=== PATIENT | female | born 1940 | race Caucasian/White ===

== ENCOUNTER 2017-08-18 17:39 | Emergency (ER) | payer MEDICARE ==
[2017-08-18 17:53] VITALS: BP 115/74; PULSE 105; RESP 17; TEMP 97.8
--- NOTE | 2017-08-18 18:21 | ED ---
Back Pain HPI - General Chief Complaint: Back Pain/Injury Stated Complaint: Back pain Time Seen by Provider: 08/18/17 18:05 Source: patient, RN notes reviewed Limitations: no limitations - History of Present Illness Initial Comments: This is a 77-year-old female who presents to the emergency department with chief complaint of back pain. Patient states that she has been experiencing back pain for the past one month. She denies any falls or injuries. Patient states that she feels most of the pain in her tailbone as well as off to the sides of her low back. Patient states that she has intermittent numbness down bilateral posterior thighs. She states that the numbness lasts for about 5 minutes at a time. She denies any radiation of pain down the legs. She denies saddle paresthesias or loss of bladder or bowel function. Patient states that she was seen by her primary care physician last week and had lumbar x-rays. She was told that they had lost her x-rays so she has not been able to see the results. Patient has no other complaints. Denies fever, chills, chest pain, shortness of breath, abdominal pain, nausea or vomiting, constipation or diarrhea, dysuria or hematuria, headache or vision changes. - Related Data Home Medications Medication Instructions Recorded Confirmed Calcium/Magnesium/Zinc 0.5 tab PO DAILY 01/01/14 12/21/14 [Trgideu-Xeceoiqtc-Fnbf Tablet] Cholecalciferol [Vitamin D3] 400 unit PO DAILY 01/01/14 12/21/14 Aspirin 81 mg PO HS 12/13/14 12/21/14 Previous Rx's Medication Instructions Recorded Clopidogrel [Plavix] 75 mg PO DAILY #30 tab 03/22/14 Budesonide-Formot 160-4.5 Mcg 2 puff INHALATION RT-BID #1 puff 12/20/14 [Symbicort 160-4.5 Mcg Inhaler] Nicotine 21Mg/24Hr Patch [Habitrol] 1 patch TRANSDERM DAILY #30 patch 12/20/14 Omeprazole [PriLOSEC] 20 mg PO RAFALKFSBenito #30 capsule. 12/20/14 Atenolol [Tenormin] 25 mg PO BID #60 tab 12/24/14 Furosemide [Lasix] 60 mg PO QAM #90 tab 12/24/14 Lisinopril [Zestril] 2.5 mg PO HS #30 tab 12/24/14 Spironolactone [Aldactone] 25 mg PO DAILY #30 tab 12/24/14 Tiotropium 18 Mcg/Puff [Spiriva] 1 puff INHALATION RT-DAILY inhaler 12/24/14 methylPREDNISolone Dose Pack 16 mg PO DAILY tab 12/24/14 [Medrol Dose Pack] HYDROcodone/APAP 5-325MG [Orting 5] 1 each PO Q6HR PRN #6 tab 08/18/17 predniSONE 20 mg PO DAILY #3 tab 08/18/17 Allergies Allergy/AdvReac Type Severity Reaction Status Date / Time shellfish derived Allergy Severe Anaphylaxis Verified 08/18/17 17:53 nickel [Nickel] Allergy Rash/Hives Verified 08/18/17 17:53 Review of Systems ROS Statement: Those systems with pertinent positive or pertinent negative responses have been documented in the HPI. ROS Other: All systems not noted in ROS Statement are negative. Past Medical History Past Medical History: Coronary Artery Disease (CAD), Heart Failure, Hypertension , Myocardial Infarction ([place]), Rheumatoid Arthritis ([place]) Additional Past Medical History / Comment(s): circulation problems in legs, OSTEOARTHRITIS, STATES WAS TOLD HAD "LEAKY VALVES" AND "SOME BLOCKAGE IN MY NECK VEINS", had polio as a child, some weakness in legs History of Any Multi-Drug Resistant Organisms: None Reported Past Surgical History: Hysterectomy, Orthopedic Surgery Additional Past Surgical History / Comment(s): LEFT WRIST, SUMA, aortogram Hysterectomy is on the right Past Anesthesia/Blood Transfusion Reactions: No Reported Reaction Past Psychological History: No Psychological Hx Reported Smoking Status: Current every day smoker Past Alcohol Use History: None Reported Past Drug Use History: None Reported - Past Family History Mother Additional Family Medical History / Comment(s): ETOH abuse General Exam - General Exam Comments Initial Comments: General: Awake and alert, well-developed; in no apparent distress. HEENT: Head atraumatic, normocephalic. Pupils are equal, round and reactive to light. Extraocular movements intact. Oropharynx moist without erythema or exudate. Neck: Supple. Normal ROM. No tenderness. Cardiovascular: Regular rate and rhythm. No murmurs, rubs or gallops. Chest symmetrical. Respiratory: Lungs clear to auscultation bilaterally. No wheezes, rales or rhonchi. Normal respiratory effort with no use of accessory muscles. Musculoskeletal: Normal [place] of spine. Bilateral SI joint tenderness and sacral tenderness. No bony point vertebral tenderness or paraspinal muscle tenderness. Sensation is intact. Pedal pulses are 2+ equal and palpable bilaterally. Skin: [place], warm and dry without rashes or lesions. Neurological: Alert and oriented x3. CN II-XII grossly intact. Speech is fluent and answers are appropriate. No focal neuro deficits. Psychiatric: Normal mood and affect. No overt signs of depression or anxiety noted. Limitations: no limitations Course Vital Signs 08/18/17 17:51 Temperature 97.8 F Pulse Rate 105 H Respiratory 17 Rate Blood Pressure 115/74 O2 Sat by Pulse 96 Oximetry Medical Decision Making - Medical Decision Making This is a 77-year-old female who presents to the emergency department with chief complaint of back pain 1 month. x-ray revealed no acute abnormalities. Patient does appear to have degenerative changes. Patient will be given steroids and pain medication. She is to follow-up with her primary care provider. Patient is in no acute distress. She denies saddle paresthesias, loss of bladder or bowel function and has normal active range of motion. Patient is ambulating normally. Patient will be discharged home. She is in agreement with plan and voices understanding. All questions were answered. - Radiology Data Radiology results: report reviewed Lumbosacral x-ray findings: There is no fracture or malalignment. The soft tissues are unremarkable. There are prominent lumbar spondylosis changes seen at all levels. Impression: No acute process. Disposition Clinical Impression: Arthritis, low back Disposition: HOME SELF-CARE Condition: Good Instructions: Acute Low Back Pain (ED) Additional Instructions: Please follow up with primary care provider within 1-2 days. Return to emergency department if symptoms should worsen or any concerns arise. Prescriptions: HYDROcodone/APAP 5-325MG [Orting 5] 1 each PO Q6HR PRN #6 tab PRN Reason: Pain predniSONE 20 mg PO DAILY #3 tab Referrals: Nonstaff,Physician [Primary Care Provider] - 1-2 days Time of Disposition: 18:57
--- NOTE | 2017-08-18 18:31 | XR ---
PROCEDURE: XR lumbosacral spine - 5V DATE AND TIME: 08/18/2017 6:24 PM REFERRING PHYSICIAN: Michelle Ng CLINICAL INDICATION: PHH, Pain TECHNIQUE: Department protocol. COMPARISON: None FINDINGS: There is no fracture or malalignment. The soft tissues are unremarkable. There are prominen t lumbar spondylosis changes seen at all levels. IMPRESSION: NO ACUTE PROCESS.
[2017-08-18] MEDS ORDERED: predniSONE 50 MG TAB PO STA (18:52)
== END 2017-08-18 19:03 | disposition home or self-care (01) ==
LOC: EC 17:39
DX: M45.8 Ankylosing spondylitis sacral and sacrococcygeal region (principal); I25.10 Atherosclerotic heart disease of native coronary artery without angina pectoris; I25.2 Old myocardial infarction; I50.9 Heart failure, unspecified; Z79.82 Long term (current) use of aspirin; Z79.899 Other long term (current) drug therapy; Z91.013 Allergy to seafood; Z91.09 Other allergy status, other than to drugs and biological substances; Z98.890 Other specified postprocedural states
CPT/HCPCS: 72110; 99283; J7512

== ENCOUNTER → 2018-10-23 | Outpatient (CLI) | payer MEDICARE ==
[2018-10-23 14:26] LABS: Anion Gap 8 mmol/L; Blood Urea Nitrogen 16 mg/dL (7-17); Carbon Dioxide 30 mmol/L (22-30); Chloride 99 mmol/L (98-107); Potassium 4.2 mmol/L (3.5-5.1); Sodium 137 mmol/L (137-145)
[2018-10-23 14:29] LABS: HCT 39.5 % (34.0-46.0); HGB 12.1 gm/dL (11.4-16.0); Hypochromasia Slight; MCHC 30.8 g/dL (31.0-37.0); MCV 87.6 fL (80.0-100.0); Platelet Count 374 k/uL (150-450); RBC 4.51 m/uL (3.80-5.40); RDW 14.5 % (11.5-15.5); WBC 11.7 k/uL (3.8-10.6)
== END | disposition home or self-care (01) ==
LOC: LABPAT 12:25
PROVIDERS: ATTEND Internal Medicine Interventional Cardiology
DX: Z01.812 Encounter for preprocedural laboratory examination (principal); I25.10 Atherosclerotic heart disease of native coronary artery without angina pectoris; I25.5 Ischemic cardiomyopathy; I34.0 Nonrheumatic mitral (valve) insufficiency
CPT/HCPCS: 36415; 80051; 82565; 84520; 85027

== ENCOUNTER 2018-11-02 09:13 | Day surgery (SDC) | payer MEDICARE ==
[~2018-11-02 09:13] MED LIST: ALPRAZolam 0.25 MG TAB PO PRN; ASPIRIN 325 MG TAB PO ONE; SODIUM CHLORIDE 0.9% 1,000 ML in EMPTY BAG 1 BAG IV ONE
[2018-11-02 09:44] VITALS: TEMP 97.5
[2018-11-02] MEDS ORDERED: IV FLUID CONTINUATION 1,000 ML IV ONE (11:28)
[2018-11-02] MEDS: BENZOCAINE SPRAY 1 CAN MUCOUS MEM ONE ×2 (11:35→11:43)
[2018-11-02] MEDS ORDERED: MIDAZOLAM 2 MG/2 ML VIAL IV ONE ×3 (11:43→12:06)
[2018-11-02] MEDS ORDERED: fentaNYL (PF) 50 MCG/ML 2 ML AMP IV ONE ×2 (11:43→11:55)
[2018-11-02] MEDS ORDERED: LIDOCAINE 1% INJ 10MG/ML (20 ML MDV) ONE (11:55)
[2018-11-02] MEDS: MIDAZOLAM 2 MG/2 ML VIAL IV ONE ×2 (11:55→11:58)
[2018-11-02] MEDS ORDERED: FLUMAZENIL 0.1 MG/ML 5 ML VIAL IVP ONE (12:18)
[2018-11-02] MEDS: FLUMAZENIL 0.1 MG/ML 5 ML VIAL IVP ONE ×2 (12:24→12:31)
[2018-11-02] MEDS ORDERED: LIDOCAINE 1% INJ 10MG/ML (20 ML MDV) SQ ONE (12:36)
--- NOTE | 2018-11-02 12:44 | ECHOT ---
TRANSESOPHAGEAL ECHOCARDIOGRAM DATE OF SERVICE: November 02, 2018 PERFORMING PHYSICIAN: Dontrell Jane MD, mica washer gluer. PROCEDURE PERFORMED: Transesophageal echocardiogram. INDICATION: This is a 78-year-old female patient with history of coronary artery disease, peripheral arterial disease, as well as significant history of smoking, who was experiencing lately worsening exertional dyspnea. No chest pain or chest discomfort. She underwent transthoracic echocardiogram and that revealed severe mitral regurgitation with cardiomyopathy and EF between 35% to 40%. Beside that she underwent myocardial perfusion imaging stress test and that revealed septal ischemia. Because of that, a transesophageal echocardiogram was advised. COMPLICATION: None. LEVEL OF SEDATION: Moderate with sedation length of 10 minutes. PROCEDURE DESCRIPTION: After obtaining an informed consent, explaining the procedure, benefits, risks, complications and alternatives, the patient was brought to the transesophageal echocardiogram suite. A pulse oximetry and heart rate monitors were attached to the patient prior to the procedure. The patient's throat was sprayed using lidocaine locally. Following that, the patient was turned into left lateral position. A bite guard was placed and the patient was then sedated with the above doses of Versed and fentanyl in divided doses. Following that, the transesophageal echocardiogram probe was advanced through the bite guard into the mid esophagus where 2-D echocardiogram images as well as color Doppler images of various cardiac structures were obtained. We evaluated the interatrial septum using 2-D echocardiogram, color Doppler, and contrast study. The procedure was completed. There were no complications. FINDINGS: The left ventricle appeared to be dilated. The left ventricular systolic function is impaired with an ejection fraction of 35% to 40%. The right ventricle appeared to be of normal size and function. The left atrium appeared to be severely dilated. Left atrial appendage appeared to be free from any thrombus. The interatrial septum was not well visualized, but there was no clear-cut evidence of right to left or left to right shunt. The aortic valve appears to be trileaflet valve with mild aortic insufficiency. No aortic stenosis seen. The mitral valve seems to be thickened with evidence of severe mitral regurgitation with slightly posteriorly directed jet. The tricuspid valve and pulmonic valve appear to be within normal limits with mild TR and mild PI. CONCLUSION: 1. Severe mitral regurgitation with posteriorly directed jet. The mitral regurgitation severity was confirmed by color-flow Doppler, as well as by contracta. 2. Impaired left ventricular function with ejection fraction between 35% to 40%. 3. Aortic sclerosis without stenosis with mild insufficiency. 4. Mild tricuspid regurgitation. 5. Mild pulmonic insufficiency. 6. Severely dilated left atrium. 7. Normal left atrial appendage. 8. Intact interatrial septum. MMODL / IJN: [id number] /
[2018-11-02] MEDS ORDERED: IOPAMIDOL-370 150ML BTL INJ ONE (12:51)
[2018-11-02] MEDS ORDERED: ONDANSETRON 4 MG/2 ML VIAL ONE (13:17)
[2018-11-02] MEDS ORDERED: ONDANSETRON 4 MG/2 ML VIAL IVP ONE (13:21)
[2018-11-02] MEDS ORDERED: RX INFO: IV CONTRAST WAS GIVEN 1 EACH MISC MISCELLANE PRN (13:27)
--- NOTE | 2018-11-02 13:29 | CC ---
CARDIAC CATHETERIZATION REPORT DATE OF SERVICE: November 02, 2018 PERFORMING PHYSICIAN: Dontrell Jane MD, ditcher. PROCEDURE PERFORMED: 1. Selective right and left coronary angiogram. 2. Left heart catheterization. INDICATION: This is a 78-year-old female patient with history of coronary artery disease, peripheral arterial disease, and significant history of smoking, who was experiencing recently symptoms of exertional dyspnea. She underwent a stress test in the office and that showed anteroseptal ischemia. Subsequently, she underwent an echocardiogram which revealed cardiomyopathy with EF between 35% to 40%and severe mitral regurgitation. Because of that, she was advised to undergo a SUMA and heart catheterization. She underwent a SUMA earlier and that revealed cardiomyopathy with EF between 35% to 40% with evidence of severe mitral regurgitation. APPROACH: Right common femoral artery. COMPLICATION: None. LEVEL OF SEDATION: Moderate with sedation length of 21 minutes. PROCEDURE DESCRIPTION: After obtaining an informed consent, the patient was brought to the cardiac mill laborer. The right common femoral artery was cannulated using micropuncture technique, the micropuncture wire passed easily then I placed a 6-[place] sheath 11 cm in the right common femoral artery. I did after that selective right and left coronary angiogram using JR4 and JL3.5 catheters. I had some difficulty advancing the 0.035 J-wire and I had to use Glidewire to cross the iliac on the right side. I did after that left heart catheterization using 6-[place] pigtail catheter. The procedure was completed without any complication. SELECTIVE CORONARY ANGIOGRAM: 1. The right coronary artery is a large caliber vessel and is a dominant vessel. The right coronary artery is chronically occluded in the proximal portion and fills by collaterals from the left coronary system. 2. The left main is extremely calcified. The mid shaft of the left main has a lesion appeared to be in the range of 70% to 80%. The left main after that bifurcates into left circumflex and left anterior descending artery. 3. The left circumflex is a large caliber vessel. The proximal circumflex appeared to be angiographically normal. It gives rise into small first OM branch. The mid left circumflex appeared to have tubular lesion in the range of 60%. This is just distal to the bifurcation of second OM branch which appeared to be angiographically normal. The left circumflex continues after that as a moderate caliber vessel in the AV groove. 4. The LAD: The proximal LAD appeared to be calcified with mild to moderate disease. The mid LAD appeared to have mild disease only and the LAD distally appeared to be angiographically normal. HEMODYNAMICS: The left ventricular end-diastolic pressure was 12 mmHg without significant gradient across the aortic valve. CONCLUSION: 1. Chronic total occlusion of the right coronary artery which fills by collaterals from the left coronary system. 2. Severe disease involving the left main coronary artery. 3. Extremely calcified right and left coronary system. 4. Severe peripheral arterial disease with occluded right common femoral artery. 5. Patent stent in the distal aorta. POST PROCEDURE MANAGEMENT: Given the above anatomy, I did recommend obtaining a consult for cardiothoracic surgeon for the evaluation of coronary artery bypass grafting along with mitral valve repair. MMODL / IJN: [id number] /
[2018-11-02] MEDS ORDERED: SODIUM CHLORIDE 0.9% 1,000 ML IV SCH (13:30)
--- NOTE | 2018-11-02 14:55 | XR ---
EXAMINATION TYPE: XR chest 1V DATE OF EXAM: 11/02/2018 HISTORY: Shortness of breath. COMPARISON: 12/22/2014 TECHNIQUE: Single view of the chest is submitted. FINDINGS: Demonstrated are scattered senescent parenchymal change. There is left suprahilar masslike density measuring approximately 5.6 x 5.2 cm. Underlying mass is no t excluded. Correlate with CT. The heart is stable. Hilar and mediastinal structures are within normal limits. Degenerative changes are seen of the dorsal spine. IMPRESSION: 1. There is left suprahilar masslike density measuring approximately 5.6 x 5.2 cm. Underlying mass i s not excluded. Correlate with CT.
[2018-11-02 14:56] VITALS: RESP 18
[2018-11-02 15:12] LABS: Basophils % (A) 0 %; Eosinophils % (A) 0 %; HCT 35.1 % (34.0-46.0); HGB 10.8 gm/dL (11.4-16.0); Hypochromasia Slight; Lymphocytes # (A) 0.6 k/uL (1.0-4.8); Lymphocytes % (A) 6 %; MCH 27.5 pg (25.0-35.0); MCHC 30.9 g/dL (31.0-37.0); MCV 89.1 fL (80.0-100.0); Mean Platelet Volume 8.3; Monocytes # (A) 0.3 k/uL (0-1.0); Monocytes % (A) 3 %; Neutrophils # (A) 8.6 k/uL (1.3-7.7); Neutrophils % (A) 90 %; Platelet Count 317 k/uL (150-450); RBC 3.94 m/uL (3.80-5.40); RDW 14.7 % (11.5-15.5); WBC 9.6 k/uL (3.8-10.6)
[2018-11-02 15:15] LABS: Albumin 3.7 g/dL (3.5-5.0); Calcium 8.9 mg/dL (8.4-10.2); Magnesium 2.1 mg/dL (1.6-2.3); Potassium 4.1 mmol/L (3.5-5.1); Total Bilirubin 0.4 mg/dL (0.2-1.3); Total Protein 6.5 g/dL (6.3-8.2)
[2018-11-02 15:25] LABS: Prothrombin Time 10.4 sec (9.0-12.0)
[2018-11-02 15:26] LABS: Partial Thromboplastin Time 23.6 sec (22.0-30.0)
[2018-11-02 15:36] VITALS: BMI 17.5
--- NOTE | 2018-11-02 15:55 | CT ---
EXAMINATION TYPE: CT chest wo con DATE OF EXAM: 11/02/2018 COMPARISON: NONE HISTORY: Preoperative cardiac surgery CT DLP: 170 mGycm. Automated Exposure Control for Dose Reduction was Utilized. TECHNIQUE: CT scan of the thorax is performed without IV contrast. FINDINGS: LUNGS: There is a left suprahilar upper lobe mass with invasion into the mediastinum. On soft tissue windows this blends in with the mediastinum is poorly defined in its inferior margin without contrast . Overall this measures approximately 5.4 x 4.5 x 5.1 cm. This mass abuts the aortic arch and descend ing thoracic aorta. Pleural probable scarring is present bilaterally. There is a 7 mm pulmonary nodule in the superior se gment of the left lower lobe. Faint 2 mm groundglass pulmonary nodule in the right middle lobe is see n on image 42. Mild underlying pulmonary emphysema is seen with paraseptal blebs most pronounced of t he left lung base. Bibasilar subsegmental atelectasis is also noted. MEDIASTINUM: Lack of IV contrast is noted to limit evaluation for mediastinal and especially hilar ad enopathy. However there is prevascular adenopathy measuring up to 2.1 cm in short axis. Left hilar ad enopathy is suspected although inseparable from the pulmonary arteries and left hilar mass without co ntrast. Severe coronary artery calcifications are seen. Mild cardiomegaly. No pericardial effusion is seen. OTHER: There is a focal outpouching of the descending aorta on coronal image 54 and axial image 44. C onsiderations are for chronic dissection at this location with air without penetrating atheromatous u lcer. Somewhat lobulated contour of the aorta posterior laterally is also seen on axial image 52. The re is only partial visualization of an infrarenal abdominal aortic aneurysm measuring at least 3.2 x 3.1 cm. Aorta is densely calcified. Very subtle nondisplaced rib fractures seen of rib 7 on the right anterior laterally. Mild degenerati ve changes of the spine are noted. IMPRESSION: 1. Left upper lobe suprahilar mass should be considered neoplasm until proven otherwise and invades t he mediastinum abutting the aortic arch and descending thoracic aorta. Superior segment left lower lo be pulmonary nodule and less suspicious right middle lobe punctate pulmonary nodule is seen. 2. 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
[2018-11-02 16:47] LABS: T4, Free (Free Thyroxine) 1.52 ng/dL (0.78-2.19)
[2018-11-02 17:51] VITALS: BP 87/56; PULSE 57
--- NOTE | 2018-11-02 17:55 | P.GSCN ---
History of Present Illness Consult date: 11/02/18 Reason for Consult: Symptomatic multivessel coronary artery disease. Severe mitral valve regurgitation. Requesting physician: Dontrell Jane History of present illness: This is a 78-year-old female patient who is followed by Dr. Elodia Zuniga in an outpatient basis. She has a past medical history significant for hypertension, dyslipidemia, history of polio as a child, peripheral vascular disease with history of infrarenal aortic stent, history of ischemic cardiomyopathy, rheumatoid arthritis, chronic tobacco dependence, chronic obstructive pulmonary disease, history of myocardial infarction in November 2014, history of coronary artery disease and family history of premature onset of coronary artery disease with her son having a myocardial infarction at age 51 and her daughter dying of myocardial infarction at age 35. Due to her history of myocardial infarction and coronary artery disease she has been following with Dr. Jane [facility] on an outpatient basis. Recently, the patient has had complaints of progressive shortness of breath, and feeling fatigued. She reports she also gets some occasional periods of dizziness. She denies any syncope, chest pain, fever, chills, edema or orthopnea. Due to her progressive shortness of breath she was recommended to undergo a cardiac catheterization and transesophageal echocardiogram. Subsequently, the patient underwent a cardiac catheterization w hich showed a chronic occlusion of her right coronary artery with collaterals filling from the left coronary system, severe disease involving the left main coronary artery with a 70-80% stenosis, a 60% stenosis to her mid circumflex coronary artery and mild to moderate disease to her proximal left anterior descending coronary artery. Her transesophageal echocardiogram results demonstrated severe mitral valve regurgitation with a posteriorly directed jet, and impaired left ventricular function with an ejection fraction between 35 and 40%, mild tricuspid valve regurgitation and mild pulmonic insufficiency. Due to the patient's recent symptoms, cardiac catheterization results and transesophag eal echocardiogram results a consult was placed to Dr. Adele Ahuja from cardiothoracic surgery for further evaluation and recommendations. Review of Systems A 14 point review of systems was completed and was negative except as mentioned in the HPI. Past Medical History Past Medical History: Coronary Artery Disease (CAD), Heart Failure, COPD, Hyperlipidemia, Hypertension, Myocardial Infarction ([place]), Osteoarthritis (OA), Rheumatoid Arthritis (RA) Additional Past Medical History / Comment(s): circulation problems in legs,OSTEOARTHRITIS, had polio as a child, some weakness in legs Last Myocardial Infarction Date:: 2014 History of Any Multi-Drug Resistant Organisms: None Reported Past Surgical History: Heart Catheterization With Stent, Hysterectomy, Orthopedic Surgery Additional Past Surgical History / Comment(s): LEFT WRIST, SUMA, aortogram 02-26-14, LT WRIST SX, COLONOSCOPY, history of infrarenal aortic stent placement, history of heart catheterization in 2014. Past Anesthesia/Blood Transfusion Reactions: No Reported Reaction Date of Last Stent Placement:: 2013? Past Psychological History: No Psychological Hx Reported Smoking Status: Current every day smoker Past Alcohol Use History: None Reported Additional Past Alcohol Use History / Comment(s): SMOKES 1 PPD SINCE AGE 23 Past Drug Use History: None Reported - Past Family History Daughter(s) Additional Family Medical History / Comment(s): BOTH DAUGHTER HAS - 1- AGE 35 STROKE AND HEART ATTACK, 2-HEART VALVE PROBLEM AND IN 2014 AGE 53 Mother Additional Family Medical History / Comment(s): ETOH abuse Son(s) Family Medical History: Coronary Artery Disease (CAD), Myocardial Infarction ([place]) (Diagnosed at age 53 with heart disease.) Medications and Allergies Home Medications Medication Instructions Recorded Confirmed Type Cholecalciferol [Vitamin D3] 400 unit PO DAILY 01/01/14 11/02/18 History Aspirin 81 mg PO BID 12/13/14 11/02/18 History Atorvastatin [Lipitor] 80 mg PO HS 10/30/18 11/02/18 History Furosemide [Lasix] 40 mg PO QA 10/30/18 11/02/18 History Metoprolol Succinate [Toprol XL] 25 mg PO DAILY 10/30/18 11/02/18 History Spironolactone [Aldactone] 12.5 mg PO HS 10/30/18 11/02/18 History predniSONE 5 mg PO DAILY 10/30/18 11/02/18 History Allergies Allergy/AdvReac Type Severity Reaction Status Date / Time shellfish derived Allergy Severe Anaphylaxis Verified 10/30/18 12:55 nickel [Nickel] Allergy Rash/Hives Verified 10/30/18 12:55 Surgical - Exam Vital Signs Temp Pulse Resp BP Pulse Ox 97.5 F L 51 L 18 104/57 97 11/02/18 09:43 11/02/18 09:43 11/02/18 09:43 11/02/18 09:43 11/02/18 09:43 - General Thin well developed, well nourished, no distress, no pain - Eyes PERRL - ENT normal pinna, normal nares, normal mucosa, no hearing loss, no congestion, poor usp (Lower teeth), dentures (upper plate) - Neck Neck is supple, no lymphadenopathy. no masses, trachea midline, no venous distension carotid bruit: bilateral - Respiratory Lung sounds are essentially clear throughout, diminished bilateral bases. Respi rations are symmetrical and nonlabored. No wheezing or rhonchi. - Cardiovascular Regular rhythm and rate. S1 and S2 present, systolic murmur 2/6 present. No edema present. - Abdomen Abdomen is soft, nontender and nondistended. Active bowel sounds all 4 abdominal quadrants. No organomegaly. No guarding or rigidity. - Genitourinary Deferred - Rectum Deferred - Integumentary no rash, no growths, no abnormal pigmentation - Neurologic normal coordination, normal sensation - Musculoskeletal Bedrest at this time status post heart catheterization. - Psychiatric oriented to time, oriented to person, oriented to place, speech is normal, memory intact Results - Labs 11/02/18 14:33 11/02/18 14:33 Abnormal Lab Results - Last 24 Hours (Table) 11/02/18 11/02/18 Range/Units 14:33 14:33 Hgb 10.8 L (11.4-16.0) gm/dL MCHC 30.9 L (31.0-37.0) g/dL Neutrophils # 8.6 H (1.3-7.7) k/uL Lymphocytes # 0.6 L (1.0-4.8) k/uL BUN 21 H (7-17) mg/dL Glucose 125 H (74-99) mg/dL HDL Cholesterol 64 H (40-60) mg/dL TSH 0.114 L (0.465-4.680) mIU/L Diabetes panel 11/02/18 Range/Units 14:33 Sodium 138 (137-145) mmol/L Potassium 4.1 (3.5-5.1) mmol/L Chloride 104 (98-107) mmol/L Carbon Dioxide 27 (22-30) mmol/L BUN 21 H (7-17) mg/dL Creatinine 0.78 (0.52-1.04) mg/dL Glucose 125 H (74-99) mg/dL Calcium 8.9 (8.4-10.2) mg/dL AST 18 (14-36) U/L ALT 14 (9-52) U/L Alkaline Phosphatase 63 (38-126) U/L Total Protein 6.5 (6.3-8.2) g/dL Albumin 3.7 (3.5-5.0) g/dL Triglycerides 72 (<150) mg/dL HDL Cholesterol 64 H (40-60) mg/dL Thyroid panel 11/02/18 Range/Units 14:33 TSH 0.114 L (0.465-4.680) mIU/L Calcium panel 11/02/18 Range/Units 14:33 Calcium 8.9 (8.4-10.2) mg/dL Albumin 3.7 (3.5-5.0) g/dL Pituitary panel 11/02/18 Range/Units 14:33 Sodium 138 (137-145) mmol/L Potassium 4.1 (3.5-5.1) mmol/L Chloride 104 (98-107) mmol/L Carbon Dioxide 27 (22-30) mmol/L BUN 21 H (7-17) mg/dL Creatinine 0.78 (0.52-1.04) mg/dL Glucose 125 H (74-99) mg/dL Calcium 8.9 (8.4-10.2) mg/dL TSH 0.114 L (0.465-4.680) mIU/L Adrenal panel 11/02/18 Range/Units 14:33 Sodium 138 (137-145) mmol/L Potassium 4.1 (3.5-5.1) mmol/L Chloride 104 (98-107) mmol/L Carbon Dioxide 27 (22-30) mmol/L BUN 21 H (7-17) mg/dL Creatinine 0.78 (0.52-1.04) mg/dL Glucose 125 H (74-99) mg/dL Calcium 8.9 (8.4-10.2) mg/dL Total Bilirubin 0.4 (0.2-1.3) mg/dL AST 18 (14-36) U/L ALT 14 (9-52) U/L Alkaline Phosphatase 63 (38-126) U/L Total Protein 6.5 (6.3-8.2) g/dL Albumin 3.7 (3.5-5.0) g/dL - Imaging Chest x-ray: report reviewed, image reviewed CT scan - chest: report reviewed, image reviewed Assessment and Plan Assessment: 1. Symptomatic multivessel coronary artery disease. 2. Severe mitral valve regurgitation. 3. Severe peripheral arterial disease with occluded right common femoral artery and history of infrarenal aortic stent. 4. History of hypertension, 5. Dyslipidemia 6. Chronic nicotine dependence. 7. History of myocardial infarction in 2014 8. History of Ischemic cardiomyopathy and ejection fraction between 35 and 40%. 9. Bilateral carotid artery disease with bilateral carotid bruits. 10. Rheumatoid arthritis. 11. Left suprahilar mass like density measuring approximately 5.6 x 5.2 cm Plan: The patient was seen and examined in the extended stay unit. Her chart and diagnostics were reviewed including her heart catheterization and transesophageal echocardiogram results. Dr. Adele Ahuja discussed and reviewed the heart catheterization and transesophageal echocardiogram results with Dr. Jane and with the patient and family members present at her bedside. Preoperative workup and teaching has been initiated. We will obtain a chest x- ray, computed tomography scan of her chest without contrast for further evaluation. The importance of smoking sensation was thoroughly discussed with the patient. We will obtain vein mapping and a bedside FEV1 test. A follow-up appointment has been made for the patient to see Dr. Ahuja in the office on 11/16/2018 at 12 PM to further discuss the preoperative testing results to discuss further treatment options. Thank you Dr. Jane for this consult and we'll look forward to working with you in the care of your patient. Time with Patient: Greater than 30
--- NOTE | 2018-11-02 18:35 | US ---
EXAMINATION TYPE: US carotid duplex BILAT DATE OF EXAM: 11/02/2018 COMPARISON: 11/06/2013 CLINICAL HISTORY: Pre-Op Cardiac Surgery. EXAM MEASUREMENTS: RIGHT: Peak Systolic Velocity (PSV) cm/sec ----- Right CCA: 44.6 ----- Right ICA: 81.2 ----- Right ECA: 107.2 ICA/CCA ratio: 1.8 RIGHT: End Diastole cm/sec ----- Right CCA: 17.5 ----- Right ICA: 33.0 ----- Right ECA: 11.1 LEFT: Peak Systolic Velocity (PSV) cm/sec ----- Left CCA: 66.4 ----- Left ICA: 140.5 ----- Left ECA: 159.4 ICA/CCA ratio: 2.1 LEFT: End Diastole cm/sec ----- Left CCA: 17.3 ----- Left ICA: 36.4 ----- Left ECA: 6.3 VERTEBRALS (direction of flow): Right Vertebral: Antegrade Left Vertebral: Antegrade Rhythm: Arrhythmia Bilateral intimal thickening, plaque bilateral bulb and proximal ICA, elevated velocities: left mid I CA, left distal ICA, left proximal ECA, left ICA/CCA ratio 2.1 IMPRESSION: There is elevated velocity in the left internal carotid artery to suggest 50-79% stenosi s. There is antegrade flow in the vertebral arteries. Images and measurements on the right side sugge st 25% stenosis in the right internal carotid artery. Criteria for Assigning % of Stenosis / Diameter reduction (Estimation based on the indirect measurements of the internal carotid artery velocities (ICA PSV). 1. Normal (no stenosis)=ICA PSV < 125 cm/s: ratio < 2.0: ICA EDV<40 cm/s. 2. Less than 50% stenosis=ICA PSV < 125 cm/s: ratio < 2.0: ICA EDV<40 cm/s. 3. 50 to 69% stenosis=ICA PSV of 125 to 230 cm/s: ration 2.0 ? 4.0: ICA EDV 40-100 cm/s. 4. Greater than 70% stenosis to near occlusion= ICA PSV > 230 cm/s: ratio > 4.0: ICA EDV > 100 cm/s. 5. Near occlusion= ICA PSV velocities may be low or undetectable: variable ratio and ICA EDV. 6. Total occlusion=unable to detect flow.
[2018-11-02 19:12] LABS: Hepatitis A Antibody IgM Non-Reactive (Non-Reactive); Hepatitis B Core IgM Non-Reactive (Non-Reactive)
[2018-11-02 20:21] LABS: Appearance,Urine Clear (Clear); Bilirubin,Urine Negative (Negative); Blood,Urine Negative (Negative); Color,Urine Light Yellow; Glucose,Urine (UA) Negative (Negative); Ketones,Urine Negative (Negative); Leukocyte Esterase,Urine Negative (Negative); Nitrite,Urine Negative (Negative); PH, Urine 5.5 (5.0-8.0); Protein,Urine Negative (Negative); Specific Gravity,Urine 1.031 (1.001-1.035); Urobilinogen,Urine <2.0 mg/dL (<2.0)
[2018-11-03 00:18] LABS: Hemoglobin A1C 6.4 % (4.0-6.0)
--- NOTE | 2018-11-07 12:01 | P.VSCSTY ---
Greater Saphenous Vein Mapping This is bilateral lower extremity greater saphenous vein mapping. Date of service 11/02/2018 Vein quality and ultrasound appearance no wall changes or intraluminal thrombus are seen. Vein size groin right 4.4 x 3.3 groin left 4.8 x 4.3 High thigh right 3.9 x 3.3 high thigh left 4.6 x 3.4 Mid thigh right 4.6 x 3.5 mid thigh left 3.5 x 2.3 Above-knee right 2.2 x 2.1 above- knee left 3.6 x 2.8 Below knee right 1.1 x 1.0 below-knee left 2.4 x 2.0 Mid calf right small mid calf left 1.6 x 1.7 Ankle right small ankle left 1.6 x 1.3 Impression usable bilateral greater saphenous vein in the thighs. Left somewhat better than the right. Below knee on the right and distally on the left probably too small to utilize.
== END 2018-11-02 21:00 | disposition home or self-care (01) ==
LOC: CATHCVL 09:13 → 1SOBS 13:23 → CATHCVL 21:00
PROVIDERS: ATTEND Internal Medicine Interventional Cardiology
DX: I25.110 Atherosclerotic heart disease of native coronary artery with unstable angina pectoris (principal); I08.3 Combined rheumatic disorders of mitral, aortic and tricuspid valves; I25.82 Chronic total occlusion of coronary artery; I25.5 Ischemic cardiomyopathy; I25.2 Old myocardial infarction; I11.0 Hypertensive heart disease with heart failure; F17.210 Nicotine dependence, cigarettes, uncomplicated; E78.5 Hyperlipidemia, unspecified; I50.9 Heart failure, unspecified; M19.90 Unspecified osteoarthritis, unspecified site; I71.4 Abdominal aortic aneurysm, without rupture; I70.0 Atherosclerosis of aorta; I73.9 Peripheral vascular disease, unspecified; J44.9 Chronic obstructive pulmonary disease, unspecified; E78.00 Pure hypercholesterolemia, unspecified; M06.9 Rheumatoid arthritis, unspecified; Z82.49 Family history of ischemic heart disease and other diseases of the circulatory system; Z95.5 Presence of coronary angioplasty implant and graft; Z86.12 Personal history of poliomyelitis; Z79.82 Long term (current) use of aspirin; Z79.899 Other long term (current) drug therapy; Z79.52 Long term (current) use of systemic steroids; Z91.013 Allergy to seafood; Z91.048 Other nonmedicinal substance allergy status
CPT/HCPCS: 94150; 93312; 93325; 93458; 84439; 80061; 80053; 80074; 84443; 83735; 85025; 85610; 85730; 81003; 87070; 87086; 83036; 71045; 93970; 93880; 71250; C1769 ×4; C1894; J2250; J2405; J2001; J3010; Q9967; 93320

== ENCOUNTER 2018-11-07 09:34 | Emergency (ER) | payer MEDICARE ==
[2018-11-07 09:38] VITALS: BP 98/48; PULSE 82; RESP 18; TEMP 98
--- NOTE | 2018-11-07 10:20 | ED ---
Recheck HPI - General Chief Complaint: Recheck/Abnormal Lab/Rx Stated Complaint: Groin Pain Time Seen by Provider: 11/07/18 10:04 Source: patient, RN notes reviewed, old records reviewed Mode of arrival: wheelchair Limitations: no limitations - History of Present Illness Initial Comments: Patient is a 78-year-old female who presents emergency Department today with complaints of left groin pain. Patient states that on Monday she had a right cardiac cath and SUMA completed. She states that she has no significant pain with her right groin. Patient denies any abdominal pain. Patient reports pain is worse with external rotation of the hip. She denies any falls or trauma. - Related Data Home Medications Medication Instructions Recorded Confirmed Cholecalciferol [Vitamin D3] 400 unit PO DAILY 01/01/14 11/07/18 Aspirin 81 mg PO BID 12/13/14 11/07/18 Atorvastatin [Lipitor] 80 mg PO HS 10/30/18 11/07/18 Metoprolol Succinate [Toprol XL] 25 mg PO DAILY 10/30/18 11/07/18 Spironolactone [Aldactone] 12.5 mg PO HS 10/30/18 11/07/18 predniSONE 5 mg PO DAILY 10/30/18 11/07/18 Furosemide [Lasix] 40 mg PO DAILY 11/07/18 11/07/18 Multivitamins, Thera [Multivitamin 0.5 tab PO BID 11/07/18 11/07/18 (formulary)] Previous Rx's Medication Instructions Recorded Ibuprofen [Motrin] 600 mg PO Q8HR PRN #20 tab 11/07/18 Allergies Allergy/AdvReac Type Severity Reaction Status Date / Time shellfish derived Allergy Severe Anaphylaxis Verified 11/07/18 10:03 iodine Allergy Rash/Hives Verified 11/07/18 10:03 nickel [Nickel] Allergy Rash/Hives Verified 11/07/18 10:03 Review of Systems ROS Statement: Those systems with pertinent positive or pertinent negative responses have been documented in the HPI. ROS Other: All systems not noted in ROS Statement are negative. Past Medical History Past Medical History: Coronary Artery Disease (CAD), Heart Failure, COPD, Hyperlipidemia, Hypertension, Myocardial Infarction ([place]), Osteoarthritis (OA), Rheumatoid Arthritis (RA) Additional Past Medical History / Comment(s): circulation problems in legs,OSTEOARTHRITIS, had polio as a child, some weakness in legs Last Myocardial Infarction Date:: 2014 History of Any Multi-Drug Resistant Organisms: None Reported Past Surgical History: Heart Catheterization With Stent, Hysterectomy, Orthopedic Surgery Additional Past Surgical History / Comment(s): LEFT WRIST, SUMA, aortogram 02-26-14, LT WRIST SX, COLONOSCOPY, history of infrarenal aortic stent placement, history of heart catheterization in 2015. Past Anesthesia/Blood Transfusion Reactions: No Reported Reaction Date of Last Stent Placement:: 2013? Past Psychological History: No Psychological Hx Reported Smoking Status: Current every day smoker Past Alcohol Use History: None Reported Past Drug Use History: None Reported - Past Family History Daughter(s) Additional Family Medical History / Comment(s): BOTH DAUGHTER HAS - 1- AGE 35 STROKE AND HEART ATTACK, 2-HEART VALVE PROBLEM AND IN 2014 AGE 53 Son(s) Family Medical History: Coronary Artery Disease (CAD), Myocardial Infarction ([place]) (Diagnosed at age 51 with heart disease.) Mother Additional Family Medical History / Comment(s): ETOH abuse General Exam - General Exam Comments Initial Comments: This is a 78-year-old female. Alert and oriented. No distress. Limitations: no limitations General appearance: alert, in no apparent distress Head exam: Present: atraumatic, normocephalic, normal inspection Eye exam: Present: normal appearance, PERRL, EOMI. Absent: scleral icterus, conjunctival injection, periorbital swelling ENT exam: Present: normal exam, mucous membranes moist Neck exam: Present: normal inspection. Absent: tenderness, meningismus, lymphadenopathy Respiratory exam: Present: normal lung sounds bilaterally. Absent: respiratory distress, wheezes, rales, rhonchi, stridor Cardiovascular Exam: Present: regular rate, normal rhythm, normal heart sounds. Absent: systolic murmur, diastolic murmur, rubs, gallop, clicks GI/Abdominal exam: Present: soft, normal bowel sounds. Absent: distended, tenderness, guarding, rebound, rigid Extremities exam: Present: normal inspection, full ROM, normal capillary refill, other (Patient with palpable dorsalis pedis and femoral pulse on the left leg. Significant calf tenderness. She reports pain with range of motion of the hip. Worse pain with external rotation of L hip.). Absent: tenderness, pedal edema, joint swelling, calf tenderness Back exam: Present: normal inspection Neurological exam: Present: alert, oriented X3, CN II-XII intact Psychiatric exam: Present: normal affect, normal mood Skin exam: Present: warm, dry, intact, normal color. Absent: rash Course Vital Signs 11/07/18 09:36 Temperature 98.0 F Pulse Rate 82 Respiratory 18 Rate Blood Pressure 98/48 O2 Sat by Pulse 100 Oximetry Medical Decision Making - Medical Decision Making 78-year-old female presents emergency room stay with left hip and groin pain. Pain is worse with ambulation and external rotation of the hip. She's had a previous right leg cardiac cath. She has no significant leg swelling. Normal pulses distally bilaterally. She appears well. She has a normal urine sample. Patient x-ray of the hip and pelvis show arthritic changes bilaterally but no significant change. At this time Patient has full range of motion but does report some pain relief after by mouth pain pill. Patient's pain seems to be consistent with femoral acetabular impingement syndrome. Patient will be discharged at this time with a short [pain medicine and close follow-up with PCP. All questions answered. - Lab Data Lab Results 11/07/18 Range/Units 10:14 Urine Color Light Yellow Urine Appearance Clear (Clear) Urine pH 6.5 (5.0-8.0) Ur Specific [place] 1.008 (1.001-1.035) Urine Protein Negative (Negative) Urine Glucose (UA) Negative (Negative) Urine Ketones Negative (Negative) Urine Blood Negative (Negative) Urine Nitrite Negative (Negative) Urine Bilirubin Negative (Negative) Urine Urobilinogen <2.0 (<2.0) mg/dL Ur Leukocyte Esterase Negative (Negative) Disposition Clinical Impression: Strain of left hip, Femoral acetabular impingement Disposition: HOME SELF-CARE Condition: Good Instructions (If sedation given, give patient instructions): Groin Strain (ED) Additional Instructions: Follow-up with primary care doctor and ortho. Return to emergency department if any alarming signs or symptoms occur. Prescriptions: Ibuprofen [Motrin] 600 mg PO Q8HR PRN #20 tab PRN Reason: Pain Is patient prescribed a controlled substance at d/c from ED?: No Referrals: None,Stated [Primary Care Provider] - 1-2 days Kar Parks MD [STAFF PHYSICIAN] - 1-2 days Time of Disposition: 12:28
[2018-11-07] MEDS ORDERED: HYDROcodone/APAP 5-325MG 1 EACH TAB PO STA (10:54)
[2018-11-07 11:12] LABS: Appearance,Urine Clear (Clear); Bilirubin,Urine Negative (Negative); Blood,Urine Negative (Negative); Color,Urine Light Yellow; Glucose,Urine (UA) Negative (Negative); Ketones,Urine Negative (Negative); Leukocyte Esterase,Urine Negative (Negative); Nitrite,Urine Negative (Negative); PH, Urine 6.5 (5.0-8.0); Protein,Urine Negative (Negative); Specific Gravity,Urine 1.008 (1.001-1.035); Urobilinogen,Urine <2.0 mg/dL (<2.0)
--- NOTE | 2018-11-07 11:28 | XR ---
EXAMINATION TYPE: XR Hip LT and AP Pelvis DATE OF EXAM: 11/07/2018 COMPARISON: NONE HISTORY: Pelvic and left hip pain. TECHNIQUE: A single AP view of the pelvis is obtained. Two views of the left hip are obtained. FINDINGS: There is no acute fracture/dislocation evident in the pelvis. The sacroiliac joints appea r symmetric and unremarkable. There is mild symmetric axial joint space loss in both hips. The overl [place]uz [place] soft tissue appears unremarkable. Two views of left hip show no acute fracture or dislocation. No focal lytic or sclerotic lesion seen in the proximal left femur. The overlying soft tissue is unremarkable. IMPRESSION: As above.
[2018-11-07] MEDS ORDERED: ACET/COD 300 MG/30 MG STARTER PACK 6 TAB BTL PO STA (12:28)
== END 2018-11-07 12:28 | disposition home or self-care (01) ==
LOC: EC 09:34
DX: S76.012A Strain of muscle, fascia and tendon of left hip, initial encounter (principal); M25.852 Other specified joint disorders, left hip; I25.10 Atherosclerotic heart disease of native coronary artery without angina pectoris; I11.0 Hypertensive heart disease with heart failure; I50.9 Heart failure, unspecified; E78.5 Hyperlipidemia, unspecified; I25.2 Old myocardial infarction; F17.200 Nicotine dependence, unspecified, uncomplicated; Z87.39 Personal history of other diseases of the musculoskeletal system and connective tissue; Z95.5 Presence of coronary angioplasty implant and graft; Z95.818 Presence of other cardiac implants and grafts; Z79.82 Long term (current) use of aspirin; Z79.52 Long term (current) use of systemic steroids; Z79.899 Other long term (current) drug therapy; Z91.013 Allergy to seafood; Z91.048 Other nonmedicinal substance allergy status; X58.XXXA Exposure to other specified factors, initial encounter
CPT/HCPCS: 73502; 81003; 99284

== ENCOUNTER 2018-12-17 10:07 | Emergency (ER) | payer MEDICARE ==
[2018-12-17] MEDS ORDERED: MORPHINE SULFATE 2 MG/ML SYRINGE IVP STA (12:20)
[2018-12-17] MEDS ORDERED: SODIUM CHLORIDE 0.9% 1,000 ML IV SCH (12:30)
[2018-12-17 12:41] LABS: Basophils # (A) 0.1 k/uL (0-0.2); Basophils % (A) 1 %; Eosinophils # (A) 0.2 k/uL (0-0.7); Eosinophils % (A) 2 %; HCT 35.4 % (34.0-46.0); HGB 11.2 gm/dL (11.4-16.0); Hypochromasia Moderate; Lymphocytes # (A) 1.3 k/uL (1.0-4.8); Lymphocytes % (A) 12 %; MCH 26.9 pg (25.0-35.0); MCHC 31.8 g/dL (31.0-37.0); MCV 84.6 fL (80.0-100.0); Mean Platelet Volume 8.1; Monocytes # (A) 0.6 k/uL (0-1.0); Monocytes % (A) 6 %; Neutrophils # (A) 9.1 k/uL (1.3-7.7); Neutrophils % (A) 79 %; Platelet Count 364 k/uL (150-450); RBC 4.19 m/uL (3.80-5.40); RDW 15.3 % (11.5-15.5); WBC 11.5 k/uL (3.8-10.6)
[2018-12-17 12:44] LABS: Anion Gap 12 mmol/L; Blood Urea Nitrogen 18 mg/dL (7-17); Calcium 9.4 mg/dL (8.4-10.2); Carbon Dioxide 29 mmol/L (22-30); Chloride 96 mmol/L (98-107); Glucose 86 mg/dL (74-99); Potassium 3.6 mmol/L (3.5-5.1); Sodium 137 mmol/L (137-145)
[2018-12-17] MEDS ORDERED: methylPREDNISolone SOD SUCCI 125 MG/2 ML VIAL IV STA (13:08)
[2018-12-17] MEDS ORDERED: diphenhydrAMINE 50 MG/ML 1 ML VIAL IVP STA (13:09)
[2018-12-17] MEDS ORDERED: FAMOTIDINE 20 MG/2 ML VIAL IV STA (13:09)
[2018-12-17 14:34] VITALS: TEMP 98.1
--- NOTE | 2018-12-17 14:42 | ED ---
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 Patient states the past 2-3 years she has had chronic low back pain. She states this progressively gotten worse. She states she had a recent PET scan which revealed lumbar spine metastasis. Patient states that she was told to take Tylenol for the pain. Patient is follow up with her primary provider once a as well as Gen. surgery for a liver biopsy. Patient denies any fever or chills, nausea vomiting hematuria dysuria or urgency frequency. She states that the pain is not significantly increased but has been more so gradual she states now she is difficulty sleeping secondary to the pain. Patient feels she needs something stronger for the pain. Patient denies any chest pain shortness of breath nausea or vomiting. Denies any lower extremity swelling. Patient denies loss of bowel bladder control urinary retention she denies any numbness tingling or loss sensation of the lower extremities or muscle weakness of the lower extremities she denies any IV drug use or night sweats. Remaining review of systems negative. - Related Data Home Medications Medication Instructions Recorded Confirmed Cholecalciferol [Vitamin D3] 400 unit PO DAILY 01/01/14 12/17/18 Aspirin 81 mg PO DIRECTED 12/13/14 12/17/18 Atorvastatin [Lipitor] 80 mg PO HS 10/30/18 12/17/18 Metoprolol Succinate [Toprol XL] 25 mg PO DAILY 10/30/18 12/17/18 Spironolactone [Aldactone] 12.5 mg PO HS 10/30/18 12/17/18 Furosemide [Lasix] 40 mg PO DAILY 11/07/18 12/17/18 Multivitamins, Thera [Multivitamin 0.5 tab PO BID 11/07/18 12/17/18 (formulary)] Acetaminophen [Tylenol Extra 500 mg PO BID PRN 12/17/18 12/17/18 Strength] Previous Rx's Medication Instructions Recorded HYDROcodone/APAP 7.5-325MG [[place] 1 tab PO Q4H PRN 3 Days #18 tab 12/17/18 7.5-325] Allergies Allergy/AdvReac Type Severity Reaction Status Date / Time shellfish derived Allergy Severe Anaphylaxis Verified 12/17/18 11:51 iodine Allergy Rash/Hives Verified 12/17/18 11:51 nickel [Nickel] Allergy Rash/Hives Verified 12/17/18 11:51 Review of Systems ROS Statement: Those systems with pertinent positive or pertinent negative responses have been documented in the HPI. ROS Other: All systems not noted in ROS Statement are negative. Past Medical History Past Medical History: Coronary Artery Disease (CAD), Cancer, Heart Failure, COPD, Hyperlipidemia, Hypertension, Myocardial Infarction ([place]), Osteoarthritis (OA), Rheumatoid Arthritis (RA) Additional Past Medical History / Comment(s): circulation problems in legs, had polio as a child, some weakness in legs, liver mass, "leaking heart valve, not sure which one", gallstones, stage 4 Ca Last Myocardial Infarction Date:: 2014 History of Any Multi-Drug Resistant Organisms: None Reported Past Surgical History: Heart Catheterization With Stent, Hysterectomy, Orthopedic Surgery Additional Past Surgical History / Comment(s): LEFT WRIST, SUMA, aortogram 02-26-14, LT WRIST SX, COLONOSCOPY, history of infrarenal aortic stent placement, history of heart catheterization in 2014 and in 2013 with stent, gallstones removal. Past Anesthesia/Blood Transfusion Reactions: No Reported Reaction Date of Last Stent Placement:: 2013? Past Psychological History: No Psychological Hx Reported Smoking Status: Current every day smoker Past Alcohol Use History: None Reported Past Drug Use History: None Reported - Past Family History Daughter(s) Additional Family Medical History / Comment(s): BOTH DAUGHTER HAS - 1- AGE 35 STROKE AND HEART ATTACK, 2-HEART VALVE PROBLEM AND IN 2014 AGE 52 Son(s) Family Medical History: Coronary Artery Disease (CAD), Myocardial Infarction ([place]) Mother Additional Family Medical History / Comment(s): ETOH abuse General Exam - General Exam Comments Initial Comments: General: The patient is awake and alert, in no distress, and does not appear acutely ill. Eye: +3 mm pupils are equal, round and reactive to light, extra-ocular move ments are intact. No nystagmus. There is normal conjunctiva bilaterally. No signs of icterus. Ears, nose, mouth and throat: There are moist mucous membranes and no oral lesions. Neck: The neck is supple, there is no tenderness or JVD. Cardiovascular: There is a regular rate and rhythm. No murmur, rub or gallop is appreciated. Respiratory: Lungs are clear to auscultation, respirations are non-labored, breath sounds are equal. No wheezes, stridor, rales, or rhonchi Gastrointestinal: Soft, non-distended, non-tender abdomen without masses or organomegaly noted. There is no rebound or guarding present. No CVA tenderness. Bowel sounds are unremarkable. Musculoskeletal: No abnormalities noted upon inspection of the cervical thoracic or lumbar spine. Patient does have tenderness to palpation of the lumbar spine mostly midline and no paravertebral tenderness. Normal ROM, no tenderness. Strength 5/5 of the lower extremities equal comparison bilaterally. Sensation intact of the lower extremities equal comparison bilaterally including the saddle region. Radial and DP pulses equal bilaterally 2+. Neurological: A&O x 3. CN II-XII intact, There are no obvious motor or sensory deficits. Coordination appears grossly intact. Speech is normal. Skin: Skin is warm and dry and no rashes or lesions are noted. Psychiatric: Cooperative, appropriate mood & affect, normal judgment. Limitations: no limitations Course Vital Signs 12/17/18 12/17/18 12/17/18 10:21 14:13 15:41 Temperature 97.7 F 98.1 F 98.1 F Pulse Rate 95 93 92 Respiratory 18 16 18 Rate Blood Pressure 127/65 125/93 126/78 O2 Sat by Pulse 97 95 98 Oximetry Medical Decision Making - Medical Decision Making 38-year-old female history of stage IV lung cancer with metastases to the liver as well as lumbar spine. Patient denied urinary symptoms. Patient had recent PET scan that these results. Patient has a appointment for a biopsy of the liver on Monday. Patient states she has follow-up with both hematology/oncology as well as primary care provider. Patient states she has had this back pain is not new. She states his discomfort persisted and interacting with her sleep. Patient states the Tylenol that she is taken home was not working. Patient does have some midline tenderness to patient the lumbar spine on examination. There is no findings consistent with cauda equina. Patient is able to ambulate. Patient major concern was pain control. Patient has no constitutional symptoms such as fever night sweats or chills. Patient CT revealed no findings consistent with infection, or acute fracture. At this time feel patient is stable for discharge with outpatient opioid analgesics and follow up as scheduled. Patient is agreeable care plan I did discuss the opioid start talking form with patient at length as well as the risk involved with opiate use patient verbalized understanding and would like to go forth with prescription. She was discharged. While to discuss the case reviewing imaging studies by attending provider Dr. Ott - Lab Data Result diagrams: 12/17/18 12:02 12/17/18 12:02 Lab Results 12/17/18 12/17/18 12/17/18 Range/Units 12:02 12:02 14:06 WBC 11.5 H (3.8-10.6) k/uL RBC 4.19 (3.80-5.40) m/uL Hgb 11.2 L (11.4-16.0) gm/dL Hct 35.4 (34.0-46.0) % MCV 84.6 (80.0-100.0) fL MCH 26.9 (25.0-35.0) pg MCHC 31.8 (31.0-37.0) g/dL RDW 15.3 (11.5-15.5) % Plt Count 364 (150-450) k/uL Neutrophils % 79 % Lymphocytes % 12 % Monocytes % 6 % Eosinophils % 2 % Basophils % 1 % Neutrophils # 9.1 H (1.3-7.7) k/uL Lymphocytes # 1.3 (1.0-4.8) k/uL Monocytes # 0.6 (0-1.0) k/uL Eosinophils # 0.2 (0-0.7) k/uL Basophils # 0.1 (0-0.2) k/uL Hypochromasia Moderate Sodium 137 (137-145) mmol/L Potassium 3.6 (3.5-5.1) mmol/L Chloride 96 L (98-107) mmol/L Carbon Dioxide 29 (22-30) mmol/L Anion Gap 12 mmol/L BUN 18 H (7-17) mg/dL Creatinine 0.61 (0.52-1.04) mg/dL Est GFR (CKD-EPI)AfAm >90 (>60 ml/min/1.73 sqM) Est GFR (CKD-EPI)NonAf 88 (>60 ml/min/1.73 sqM) Glucose 86 (74-99) mg/dL Calcium 9.4 (8.4-10.2) mg/dL Urine Color Yellow Urine Appearance Clear (Clear) Urine pH 6.0 (5.0-8.0) Ur Specific [place] 1.019 (1.001-1.035) Urine Protein Negative (Negative) Urine Glucose (UA) Negative (Negative) Urine Ketones 1+ H (Negative) Urine Blood Negative (Negative) Urine Nitrite Negative (Negative) Urine Bilirubin Negative (Negative) Urine Urobilinogen <2.0 (<2.0) mg/dL Ur Leukocyte Esterase Negative (Negative) Disposition Clinical Impression: Low back pain, History of malignant neoplasm of lung, Chronic low back pain Disposition: HOME SELF-CARE Condition: Good Instructions (If sedation given, give patient instructions): Chronic Back Pain (DC) Additional Instructions: Please use medication as discussed. Please follow-up with your family doctor in 2 days as scheduled, please follow up with hematology as scheduled. Please follow-up with orthopedic surgery as discussed. Please return to emergency room if the symptoms increase or worsen or for any other concerns. Prescriptions: HYDROcodone/APAP 7.5-325MG [[place] 7.5-325] 1 tab PO Q4H PRN 3 Days #18 tab PRN Reason: Severe Pain Is patient prescribed a controlled substance at d/c from ED?: Yes When asked, does pt state using other controlled substances?: No If prescribed controlled substance>3 days was MAPS reviewed?: Prescribed <3 Days If opioid is for acute pain is fill amount 7 days or less?: Yes If Rx opioid, was Start Talking consent form obtained?: Yes Referrals: Eri Drummond MD [Primary Care Provider] - 1-2 days Francisca Oliveros DO [Doctor of Osteopathic Medicine] - 1-2 days Time of Disposition: 15:12
[2018-12-17 14:53] LABS: Appearance,Urine Clear (Clear); Bilirubin,Urine Negative (Negative); Blood,Urine Negative (Negative); Color,Urine Yellow; Glucose,Urine (UA) Negative (Negative); Ketones,Urine 1+ (Negative); Leukocyte Esterase,Urine Negative (Negative); Nitrite,Urine Negative (Negative); Protein,Urine Negative (Negative); Specific Gravity,Urine 1.019 (1.001-1.035); Urobilinogen,Urine <2.0 mg/dL (<2.0)
--- NOTE | 2018-12-17 14:53 | CT ---
EXAMINATION TYPE: CT lumbar spine w con DATE OF EXAM: 12/17/2018 COMPARISON: Plain film 08/18/2017 HISTORY: Low back pain. History of cancer. CT DLP: 401.8 mGycm Automated exposure control for dose reduction was used. CONTRAST: CT scan of the lumbar is performed with IV Contrast, patient injected with 100 mL of Isovue [address] of the lumbar spine was performed. Bone and soft tissue window settings are submitted as well as coronal and sagittal reconstructions. FINDINGS: There is an anterolisthesis grade 1 L4-5 with associated loss of disc height. Multilevel spondylosis is present. There is a spinal curvature present. Infrarenal abdominal aortic aneurysm is present pan uring 4 cm. Descending aorta in the thorax shows a focal area of low-attenuation may represent some p laque posterior laterally on axial image 6, this does not enhance, difficult to exclude a small throm bosed aneurysm or ulcer. Patient is post cholecystectomy. There is likely a proximal celiac axis sten osis present, proximal superior mesenteric artery stenosis, correlate for chronic mesenteric ischemia . Inferior mesenteric artery is not seen proximally. There is a stent present within the distal aorta which shows a short segment. Luminal plaque present within the aorta aneurysm. L1-L2: Circumferential posterior disc material causes minimal anterior mass effect on the thecal sac and encroaches on the foramina. L2-L3: Posterior broad-based disc bulge causes mild anterior mass effect on the thecal sac. Circumfer ential extension of disc material causes bilateral foraminal encroachment. Only mild spinal stenosis. L3-L4: Circumferential posterior broad-based disc bulge causes anterior mass effect on the thecal sac . Facet arthropathy with hypertrophic changes of the ligamentum flavum causes a trefoil appearance of the thecal sac, circumferential extension of disc material causes bilateral foraminal encroachment. There is moderate central stenosis. L4-L5: There is moderate to severe spinal stenosis. Facet arthropathy changes are present. Circumfere ntial extension of disc material combined with the listhesis contributes to cause bilateral foraminal encroachment and spinal stenosis. L5-S1: Posterior broad-based disc bulge causes minimal anterior mass effect on the thecal sac. There may be contact with the proximal S1 nerve roots. No significant foraminal encroachment or central humberto nosis. IMPRESSION: No paraspinal masses are identified. Lumbar segments are intact. Degenerative disc disease, multilev el spinal stenosis, foraminal encroachment. Spondylolisthesis. Facet arthropathy. Infrarenal abdomina l aortic aneurysm and additional findings above.
[2018-12-17] MEDS ORDERED: ACET/COD 300 MG/30 MG STARTER PACK 6 TAB BTL PO STA (15:23)
[2018-12-17 15:43] VITALS: BP 126/78; PULSE 92; RESP 18
== END 2018-12-17 15:41 | disposition home or self-care (01) ==
LOC: EC 10:07
DX: M54.5 Low back pain (principal); G89.29 Other chronic pain; I25.10 Atherosclerotic heart disease of native coronary artery without angina pectoris; I11.0 Hypertensive heart disease with heart failure; I50.9 Heart failure, unspecified; E78.5 Hyperlipidemia, unspecified; I25.2 Old myocardial infarction; M19.90 Unspecified osteoarthritis, unspecified site; M06.9 Rheumatoid arthritis, unspecified; F17.200 Nicotine dependence, unspecified, uncomplicated; Z79.82 Long term (current) use of aspirin; Z85.118 Personal history of other malignant neoplasm of bronchus and lung; Z85.830 Personal history of malignant neoplasm of bone; Z79.899 Other long term (current) drug therapy; Z88.8 Allergy status to other drugs, medicaments and biological substances; Z91.013 Allergy to seafood; Z91.048 Other nonmedicinal substance allergy status; Z95.5 Presence of coronary angioplasty implant and graft
CPT/HCPCS: 36415; 80048; 85025; 81003; 72132; 99284; 96374; 96375 ×3; 96361 ×3; J1200; J2930; J2270; Q9967

== ENCOUNTER → 2018-12-19 | Day surgery (SDC) | payer MEDICARE ==
[~2018-12-19] MED LIST changes: -ALPRAZolam 0.25 MG TAB PO PRN; +ALPRAZolam 0.25 MG TAB PO STA; -ASPIRIN 325 MG TAB PO ONE; +HYDROmorphone 1 MG/ML 1 ML SYRINGE IVP STA; -SODIUM CHLORIDE 0.9% 1,000 ML in EMPTY BAG 1 BAG IV ONE
[2018-12-19 09:25] LABS: Mean Platelet Volume 8.1; Platelet Count 365 k/uL (150-450)
[2018-12-19 09:31] VITALS: RESP 16; TEMP 97.6
[2018-12-19 09:37] LABS: Prothrombin Time 10.3 sec (9.0-12.0)
--- NOTE | 2018-12-19 12:06 | P.PCN ---
Date of Procedure: 12/19/18 Preoperative Diagnosis: liver mass Postoperative Diagnosis: liver mass Procedure(s) Performed: u/s guide left lobe liver mass biopsy Anesthesia: local, other (lidocaine local, 0.25mg dilaudid iv) Pathology: other (18 ga core to path in formalin) Condition: stable Disposition: observation Operative Findings: 1 pass
--- NOTE | 2018-12-19 13:03 | US ---
EXAMINATION TYPE: US biopsy liver DATE OF EXAM: 12/19/2018 HISTORY: Left lobe liver mass. FINDINGS: Maximal barrier technique was utilized. The skin overlying a suitable path to the patient' s mass was localized with ultrasound and the overlying skin prepped and draped. Ultrasound was utili zed with sterile technique. Lidocaine was used for local anesthesia. A skin erik was made with a sc alpel. An 18-gauge needle was advanced under direct ultrasound guidance and core specimen obtained o f the mass. Specimen submitted in formalin to Pathology. Following the procedure, hemostasis achiev ed and the patient is discharged in stable condition without complication. IMPRESSION:STATUS POST ULTRASOUND GUIDED CORE BIOPSY OF liver MASS, PATHOLOGY IS PENDING. THIS PROCE DURE IS PERFORMED BY THE UNDERSIGNED.
[2018-12-19 13:40] VITALS: BP 81/55; PULSE 86
== END ==
LOC: RADPROMAIN 08:49
PROVIDERS: ATTEND Internal Medicine
DX: K76.89 Other specified diseases of liver (principal); E78.00 Pure hypercholesterolemia, unspecified; J44.9 Chronic obstructive pulmonary disease, unspecified; E78.5 Hyperlipidemia, unspecified; I25.10 Atherosclerotic heart disease of native coronary artery without angina pectoris; I11.0 Hypertensive heart disease with heart failure; I50.9 Heart failure, unspecified; I73.9 Peripheral vascular disease, unspecified; Z83.79 Family history of other diseases of the digestive system; F17.210 Nicotine dependence, cigarettes, uncomplicated; I34.0 Nonrheumatic mitral (valve) insufficiency; I25.5 Ischemic cardiomyopathy; I25.2 Old myocardial infarction; Z79.82 Long term (current) use of aspirin; Z79.899 Other long term (current) drug therapy; Z91.013 Allergy to seafood
CPT/HCPCS: 85049; 85610; 96374; 36415; 47000; 76942; J1170; 88307; 88341; 88342

== ENCOUNTER → 2018-12-28 | Outpatient (CLI) | payer MEDICARE ==
--- NOTE | 2018-12-28 08:52 | MR ---
EXAMINATION TYPE: MR brain wo con DATE OF EXAM: 12/28/2018 COMPARISON: None HISTORY: Headache CONTRAST: Performed utilizing 0 mL intravenous Gadavist gadolinium contrast. TECHNIQUE: Multiplanar, multiecho imaging on a 3.0 Veronica magnet is performed through the brain. Stud y is performed within 24 hours of arrival to the hospital. Patient had a lot of pain during this exam ination and refused the completion of the examination. This is a partial examination excluding standa rd pulse sequences and postcontrast imaging. FINDINGS: The craniovertebral junction is normal. The pituitary is normal. Diffusion-weighted imaging is performed. No abnormal hyperintensity is present to suggest an acute i ntracranial infarct or acute ischemic change. Inversion recovery weighted sequences are limited. There are scattered punctate areas of hyperintensity on T2 and Inversion Recovery weighted sequences which are non-specific but can be related to microvascular ischemic changes. This would include areas within the brainstem and within the periventricular white matter. Ventricles and sulci are appropriate for the patient age. Note is made of increased signal on T2-weighted sequences within the bilateral mastoid air cells, gre ater on the left. Correlate for mastoiditis. IMPRESSIONS: 1. Limited examination. 2. Clinical correlation recommended for bilateral mastoiditis. 3. Chronic appearing white matter changes partially visualized during this examination. Other etiolog ies are not excluded including metastasis. However, suspicious more typical changes for metastatic le sions are not apparent during imaged portions of this examination.
== END | disposition home or self-care (01) ==
LOC: RADMRIMAIN 06:36
PROVIDERS: ATTEND Internal Medicine Hematology & Oncology
DX: R90.82 White matter disease, unspecified (principal); C34.82 Malignant neoplasm of overlapping sites of left bronchus and lung
CPT/HCPCS: 70551

== ENCOUNTER 2019-01-17 12:31 | Inpatient (IN) | payer MEDICARE ==
[2019-01-17] MEDS ORDERED: IPRATROPIUM-ALBUTEROL 3 ML NEB INHALATION STA (12:50)
[2019-01-17] MEDS ORDERED: ALBUTEROL NEBULIZED 2.5 MG/3 ML INHALATION STA (12:50)
[2019-01-17] MEDS ORDERED: DEXAMETHASONE SOD PHOSPHATE 10 MG/ML 1 ML VIAL IV STA (12:50)
--- NOTE | 2019-01-17 12:58 | ED ---
General Adult HPI - General Stated complaint: Chest pain Time Seen by Provider: 01/17/19 12:45 Source: patient Mode of arrival: ambulatory Limitations: no limitations - History of Present Illness Initial comments: 78-year-old female stage IV lung cancer presenting for evaluation of dyspnea. Patient has additional past medical history of COPD and congestive heart failure. She was recently discontinued on her Lasix and given IV fluid for hypotension. This was noted at the infusion center undergoing chemotherapy. She's been on chemotherapy for the past 3 days. She denies central chest pain. Denies cough. She's had worsening dyspnea throughout the day today. She was s ent from the infusion center for evaluation. No abdominal pain nausea vomiting. No lower tremor swelling. - Related Data Home Medications Medication Instructions Recorded Confirmed Aspirin 81 mg PO BID 12/13/14 01/17/19 Atorvastatin [Lipitor] 80 mg PO HS 10/30/18 01/17/19 Metoprolol Succinate [Toprol XL] 25 mg PO DAILY 10/30/18 01/17/19 Spironolactone [Aldactone] 12.5 mg PO DAILY 10/30/18 01/17/19 Multivitamins, Thera [Multivitamin 1 tab PO DAILY 01/17/19 01/17/19 (formulary)] Previous Rx's Medication Instructions Recorded HYDROcodone/APAP 7.5-325MG [[place] 1 tab PO Q4H PRN 3 Days #18 tab 12/17/18 7.5-325] Allergies Allergy/AdvReac Type Severity Reaction Status Date / Time shellfish derived Allergy Severe Anaphylaxis Verified 01/17/19 13:59 iodine Allergy Rash/Hives Verified 01/17/19 13:59 nickel [Nickel] Allergy Rash/Hives Verified 01/17/19 13:59 Review of Systems ROS Statement: Those systems with pertinent positive or pertinent negative responses have been documented in the HPI. ROS Other: All systems not noted in ROS Statement are negative. Past Medical History Past Medical History: Coronary Artery Disease (CAD), Cancer, Heart Failure, COPD, Hyperlipidemia, Hypertension, Myocardial Infarction (LA), Osteoarthritis (OA), Rheumatoid Arthritis (RA) Additional Past Medical History / Comment(s): circulation problems in legs, had polio as a child, some weakness in legs, liver mass, "leaking heart valve, not sure which one", gallstones, stage 4 Ca Last Myocardial Infarction Date:: 2014 History of Any Multi-Drug Resistant Organisms: None Reported Past Surgical History: Heart Catheterization With Stent, Hysterectomy, Orthopedic Surgery Additional Past Surgical History / Comment(s): LEFT WRIST, SUMA, aortogram 02-26-14 , LT WRIST SX, COLONOSCOPY, history of infrarenal aortic stent placement, history of heart catheterization in 2014 and in 2013 with stent, gallstones removal. Past Anesthesia/Blood Transfusion Reactions: No Reported Reaction Date of Last Stent Placement:: 2013? Past Psychological History: No Psychological Hx Reported Smoking Status: Current every day smoker - Past Family History Daughter(s) Additional Family Medical History / Comment(s): BOTH DAUGHTER HAS - 1- AGE 35 STROKE AND HEART ATTACK, 2-HEART VALVE PROBLEM AND IN 2014 AGE 52 Son(s) Family Medical History: Coronary Artery Disease (CAD), Myocardial Infarction (LA) Mother Additional Family Medical History / Comment(s): ETOH abuse General Exam Limitations: no limitations General appearance: alert, in distress Head exam: Present: atraumatic, normocephalic Eye exam: Present: normal appearance, PERRL ENT exam: Present: mucous membranes dry Neck exam: Present: normal inspection. Absent: tenderness, meningismus Respiratory exam: Present: respiratory distress, wheezes Cardiovascular Exam: Present: regular rate, tachycardia GI/Abdominal exam: Present: soft. Absent: distended, tenderness, guarding, rebound Neurological exam: Present: alert, oriented X3, CN II-XII intact. Absent: motor sensory deficit Psychiatric exam: Present: normal affect, normal mood Skin exam: Present: warm, dry, intact, pallor Course Vital Signs 01/17/19 01/17/19 01/17/19 12:47 12:52 13:00 Temperature 99.1 F Pulse Rate 136 H 130 H Respiratory 28 H 24 Rate Blood Pressure 145/76 145/74 O2 Sat by Pulse 92 L 97 84 L Oximetry 01/17/19 01/17/19 01/17/19 13:14 13:28 13:30 Temperature Pulse Rate 124 H 130 H 122 H Respiratory 25 H Rate Blood Pressure 92/70 O2 Sat by Pulse 81 L Oximetry 01/17/19 01/17/19 01/17/19 14:00 14:30 15:00 Temperature Pulse Rate 110 H 106 H 109 H Respiratory 23 22 22 Rate Blood Pressure 99/85 97/84 108/79 O2 Sat by Pulse 90 L 90 L 93 L Oximetry 01/17/19 15:30 Temperature Pulse Rate 114 H Respiratory 29 H Rate Blood Pressure 96/69 O2 Sat by Pulse 95 Oximetry EKG Findings - EKG Comments: EKG Findings:: EKG: Sinus tachycardia, PVC, LVH no ST segment elevation, ST segment depression in lateral precordial leads. Rate of 125, PA interval 122, QRS duration 94, QTC 467. Medical Decision Making - Medical Decision Making 78 -year-old female presenting with dyspnea. Patient is cachectic, ill appearing. She has tachypnea, tachycardia on initial evaluation. She has decreased air entry bilaterally. Currently on chemotherapy for metastatic lung cancer. Chest x-ray does show concern for worsening of her known lung cancer, concern for pulmonary edema. She has history of congestive heart failure was recently taken off her Lasix. Clinically the patient appears dehydrated. She has down trending hemoglobin, she has CO2 of 14 with a lactic acid of 11, which is significantly elevated likely related to a combination of hypoxia and intravascular volume depletion.. She has a mildly elevated troponin and a significantly elevated BNP at 52,000. Further fluid resuscitation will be held awaiting repeat lactic acid and repeat assessment for volume status. She is placed on BiPAP for respiratory support. Given her cancer history she does receive CT angiography in the emergency department for evaluation of pulmonary embolism. This is pending. Lactic acid will be of trended. Her vital signs im prove on BiPAP, heart rate is down trending, blood pressure is stable she has improved oxygenation, improved work of breathing. Case is discussed with Dr. Aleman, will accept patient to the ICU for close monitoring. Case is discussed with Dr. Lizama, we will admit patient. I did discuss CODE STATUS with both patient and her family member who is at bedside. She is uncertain of her exact wishes at this time. - Lab Data Result diagrams: 01/17/19 13:29 01/17/19 13:29 Lab Results 01/17/19 01/17/19 01/17/19 Range/Units 13:29 13:29 13:29 WBC 8.6 (3.8-10.6) k/uL RBC 3.81 (3.80-5.40) m/uL Hgb 9.9 L D (11.4-16.0) gm/dL Hct 34.7 (34.0-46.0) % MCV 91.1 D (80.0-100.0) fL MCH 26.0 (25.0-35.0) pg MCHC 28.5 L (31.0-37.0) g/dL RDW 15.4 (11.5-15.5) % Plt Count 335 (150-450) k/uL Neutrophils % 82 % Lymphocytes % 15 % Monocytes % 2 % Eosinophils % 0 % Basophils % 0 % Neutrophils # 7.0 (1.3-7.7) k/uL Lymphocytes # 1.3 (1.0-4.8) k/uL Monocytes # 0.2 (0-1.0) k/uL Eosinophils # 0.0 (0-0.7) k/uL Basophils # 0.0 (0-0.2) k/uL Hypochromasia Marked PT (9.0-12.0) sec INR (<1.2) APTT (22.0-30.0) sec Sample Site ABG pH (7.35-7.45) ABG pCO2 (35-45) mmHg ABG pO2 (83-108) mmHg ABG HCO3 (21-25) mmol/L ABG Total CO2 (19-24) mmol/L ABG O2 Saturation (94-97) % ABG Base Excess mmol/L Abdon Test FiO2 % Sodium 138 (137-145) mmol/L Potassium 4.0 (3.5-5.1) mmol/L Chloride 106 (98-107) mmol/L Carbon Dioxide 14 L (22-30) mmol/L Anion Gap 18 mmol/L BUN 26 H (7-17) mg/dL Creatinine 1.04 (0.52-1.04) mg/dL Est GFR (CKD-EPI)AfAm 61 (>60 ml/min/1.73 sqM) Est GFR (CKD-EPI)NonAf 53 (>60 ml/min/1.73 sqM) Glucose 286 H (74-99) mg/dL Plasma Lactic Acid Scott (0.7-2.0) mmol/L Calcium 7.4 L (8.4-10.2) mg/dL Magnesium 2.4 H (1.6-2.3) mg/dL Total Bilirubin 0.6 (0.2-1.3) mg/dL AST 84 H (14-36) U/L ALT 29 (9-52) U/L Alkaline Phosphatase 88 (38-126) U/L Troponin I (0.000-0.034) ng/mL NT-Pro-B Natriuret Pep 96318 pg/mL Total Protein 5.8 L (6.3-8.2) g/dL Albumin 3.1 L (3.5-5.0) g/dL Urine Color Urine Appearance (Clear) Urine pH (5.0-8.0) Ur Specific [place] (1.001-1.035) Urine Protein (Negative) Urine Glucose (UA) (Negative) Urine Ketones (Negative) Urine Blood (Negative) Urine Nitrite (Negative) Urine Bilirubin (Negative) Urine Urobilinogen (<2.0) mg/dL Ur Leukocyte Esterase (Negative) Urine RBC (0-5) /hpf Urine WBC (0-5) /hpf Ur Squamous Epith Cells (0-4) /hpf Hyaline Casts (0-2) /lpf Granular Casts (0) /lpf Urine Mucus (None) /hpf 01/17/19 01/17/19 01/17/19 Range/Units 13:29 13:29 13:29 WBC (3.8-10.6) k/uL RBC (3.80-5.40) m/uL Hgb (11.4-16.0) gm/dL Hct (34.0-46.0) % MCV (80.0-100.0) fL MCH (25.0-35.0) pg MCHC (31.0-37.0) g/dL RDW (11.5-15.5) % Plt Count (150-450) k/uL Neutrophils % % Lymphocytes % % Monocytes % % Eosinophils % % Basophils % % Neutrophils # (1.3-7.7) k/uL Lymphocytes # (1.0-4.8) k/uL Monocytes # (0-1.0) k/uL Eosinophils # (0-0.7) k/uL Basophils # (0-0.2) k/uL Hypochromasia PT 11.0 (9.0-12.0) sec INR 1.0 (<1.2) APTT 23.2 (22.0-30.0) sec Sample Site ABG pH (7.35-7.45) ABG pCO2 (35-45) mmHg ABG pO2 (83-108) mmHg ABG HCO3 (21-25) mmol/L ABG Total CO2 (19-24) mmol/L ABG O2 Saturation (94-97) % ABG Base Excess mmol/L Abdon Test FiO2 % Sodium (137-145) mmol/L Potassium (3.5-5.1) mmol/L Chloride (98-107) mmol/L Carbon Dioxide (22-30) mmol/L Anion Gap mmol/L BUN (7-17) mg/dL Creatinine (0.52-1.04) mg/dL Est GFR (CKD-EPI)AfAm (>60 ml/min/1.73 sqM) Est GFR (CKD-EPI)NonAf (>60 ml/min/1.73 sqM) Glucose (74-99) mg/dL Plasma Lactic Acid Scott 11.0 H* (0.7-2.0) mmol/L Calcium (8.4-10.2) mg/dL Magnesium (1.6-2.3) mg/dL Total Bilirubin (0.2-1.3) mg/dL AST (14-36) U/L ALT (9-52) U/L Alkaline Phosphatase (38-126) U/L Troponin I 0.077 H* (0.000-0.034) ng/mL NT-Pro-B Natriuret Pep pg/mL Total Protein (6.3-8.2) g/dL Albumin (3.5-5.0) g/dL Urine Color Urine Appearance (Clear) Urine pH (5.0-8.0) Ur Specific [place] (1.001-1.035) Urine Protein (Negative) Urine Glucose (UA) (Negative) Urine Ketones (Negative) Urine Blood (Negative) Urine Nitrite (Negative) Urine Bilirubin (Negative) Urine Urobilinogen (<2.0) mg/dL Ur Leukocyte Esterase (Negative) Urine RBC (0-5) /hpf Urine WBC (0-5) /hpf Ur Squamous Epith Cells (0-4) /hpf Hyaline Casts (0-2) /lpf Granular Casts (0) /lpf Urine Mucus (None) /hpf 01/17/19 01/17/19 Range/Units 14:19 14:24 WBC (3.8-10.6) k/uL RBC (3.80-5.40) m/uL Hgb (11.4-16.0) gm/dL Hct (34.0-46.0) % MCV (80.0-100.0) fL MCH (25.0-35.0) pg MCHC (31.0-37.0) g/dL RDW (11.5-15.5) % Plt Count (150-450) k/uL Neutrophils % % Lymphocytes % % Monocytes % % Eosinophils % % Basophils % % Neutrophils # (1.3-7.7) k/uL Lymphocytes # (1.0-4.8) k/uL Monocytes # (0-1.0) k/uL Eosinophils # (0-0.7) k/uL Basophils # (0-0.2) k/uL Hypochromasia PT (9.0-12.0) sec INR (<1.2) APTT (22.0-30.0) sec Sample Site rbrach ABG pH 7.25 L (7.35-7.45) ABG pCO2 39 (35-45) mmHg ABG pO2 >400 H (83-108) mmHg ABG HCO3 17 L (21-25) mmol/L ABG Total CO2 18 L (19-24) mmol/L ABG O2 Saturation 99.4 H (94-97) % ABG Base Excess -10.2 mmol/L Abdon Test Yes FiO2 100 % Sodium (137-145) mmol/L Potassium (3.5-5.1) mmol/L Chloride (98-107) mmol/L Carbon Dioxide (22-30) mmol/L Anion Gap mmol/L BUN (7-17) mg/dL Creatinine (0.52-1.04) mg/dL Est GFR (CKD-EPI)AfAm (>60 ml/min/1.73 sqM) Est GFR (CKD-EPI)NonAf (>60 ml/min/1.73 sqM) Glucose (74-99) mg/dL Plasma Lactic Acid Scott (0.7-2.0) mmol/L Calcium (8.4-10.2) mg/dL Magnesium (1.6-2.3) mg/dL Total Bilirubin (0.2-1.3) mg/dL AST (14-36) U/L ALT (9-52) U/L Alkaline Phosphatase (38-126) U/L Troponin I (0.000-0.034) ng/mL NT-Pro-B Natriuret Pep pg/mL Total Protein (6.3-8.2) g/dL Albumin (3.5-5.0) g/dL Urine Color Yellow Urine Appearance Cloudy H (Clear) Urine pH 6.0 (5.0-8.0) Ur Specific [place] 1.021 (1.001-1.035) Urine Protein 2+ H (Negative) Urine Glucose (UA) Negative (Negative) Urine Ketones Negative (Negative) Urine Blood Negative (Negative) Urine Nitrite Negative (Negative) Urine Bilirubin Negative (Negative) Urine Urobilinogen <2.0 (<2.0) mg/dL Ur Leukocyte Esterase Negative (Negative) Urine RBC 3 (0-5) /hpf Urine WBC 25 H (0-5) /hpf Ur Squamous Epith Cells 7 H (0-4) /hpf Hyaline Casts 4 H (0-2) /lpf Granular Casts 4 (0) /lpf Urine Mucus Rare H (None) /hpf Critical Care Time Critical Care Time: Yes Total Critical Care Time: 35 Disposition Clinical Impression: COPD (chronic obstructive pulmonary disease), Acute respiratory failure, Lactic acidosis Disposition: ADMITTED IP TO THIS [facility] Condition: Serious Is patient prescribed a controlled substance at d/c from ED?: No Referrals: None,Stated [Primary Care Provider] - 1-2 days Decision to Admit Reason: Admit from EC Decision Date: 01/17/19 Decision Time: 16:14
--- NOTE | 2019-01-17 13:13 | XR ---
EXAMINATION TYPE: XR chest 1V portable DATE OF EXAM: 01/17/2019 COMPARISON: Prior chest x-ray 11/02/2018 HISTORY: Difficulty breathing, shortness of breath, stage IV lung carcinoma TECHNIQUE: Single frontal view of the chest is obtained. FINDINGS: The mass in the aorticopulmonary window region is noted and has increased in size in the i nterval. Interstitium is increased. There is no pneumothorax or pleural effusion. Heart remains enlar ged. Prominence of the fer could be indicative of underlying pulmonary artery hypertension or adenop athy. IMPRESSION: Findings compatible with patient's history of lung carcinoma. There may be interstitial spread of lung cancer or possibly pulmonary venous hypertension and interstitial edema.
[2019-01-17 14:02] LABS: Basophils % (A) 0 %; Eosinophils % (A) 0 %; HCT 34.7 % (34.0-46.0); Hypochromasia Marked; Lymphocytes # (A) 1.3 k/uL (1.0-4.8); Lymphocytes % (A) 15 %; MCHC 28.5 g/dL (31.0-37.0); Mean Platelet Volume 8.1; Monocytes # (A) 0.2 k/uL (0-1.0); Monocytes % (A) 2 %; Neutrophils % (A) 82 %; Partial Thromboplastin Time 23.2 sec (22.0-30.0); Platelet Count 335 k/uL (150-450); RBC 3.81 m/uL (3.80-5.40); RDW 15.4 % (11.5-15.5); WBC 8.6 k/uL (3.8-10.6)
[2019-01-17 14:03] LABS: HGB 9.9 gm/dL (11.4-16.0)
[2019-01-17 14:04] LABS: Albumin 3.1 g/dL (3.5-5.0); Calcium 7.4 mg/dL (8.4-10.2); MCV 91.1 fL (80.0-100.0); Magnesium 2.4 mg/dL (1.6-2.3); Total Bilirubin 0.6 mg/dL (0.2-1.3); Total Protein 5.8 g/dL (6.3-8.2)
[2019-01-17] MEDS ORDERED: SODIUM CHLORIDE 0.9% 1,000 ML IV ONE ×3 (14:07→22:07)
[2019-01-17] MEDS ORDERED: VANCOMYCIN IV PER PHARMACY 1 EACH MISC MISCELLANE PRN (14:09)
[2019-01-17] MEDS ORDERED: CEFEPIME 2 GM in SODIUM CHLORIDE 0.9% 100 ML IVPB STA (14:11)
[2019-01-17] MEDS ORDERED: VANCOMYCIN 750 MG in SODIUM CHLORIDE 0.9% 250 ML IVPB ONE (14:30)
[2019-01-17 14:52] LABS: ABG Base Excess -10.2 mmol/L; ABG HCO3 17 mmol/L (21-25); ABG Oxygen Saturation 99.4 % (94-97); ABG PCO2 39 mmHg (35-45); ABG PH 7.25 (7.35-7.45); ABG PO2 >400 mmHg (83-108); ABG TCO2 18 mmol/L (19-24); Allen Test Performed? Yes
[2019-01-17 14:57] LABS: Appearance,Urine Cloudy (Clear); Bilirubin,Urine Negative (Negative); Blood,Urine Negative (Negative); Color,Urine Yellow; Glucose,Urine (UA) Negative (Negative); Granular Casts,Urine 4 /lpf (0); Hyaline Casts,Urine 4 /lpf (0-2); Ketones,Urine Negative (Negative); Leukocyte Esterase,Urine Negative (Negative); Mucus,Urine Rare /hpf; Nitrite,Urine Negative (Negative); Protein,Urine 2+ (Negative); RBC,Urine 3 /hpf (0-5); Specific Gravity,Urine 1.021 (1.001-1.035); Squamous Epithelial Cell,Urine 7 /hpf (0-4); Urobilinogen,Urine <2.0 mg/dL (<2.0); WBC,Urine 25 /hpf (0-5)
[2019-01-17] MEDS ORDERED: diphenhydrAMINE 50 MG/ML 1 ML VIAL IVP STA (15:03)
[2019-01-17] MEDS ORDERED: FAMOTIDINE 20 MG/2 ML VIAL IV STA (15:03)
[2019-01-17] MEDS ORDERED: IPRATROPIUM-ALBUTEROL 3 ML NEB INHALATION PRN (16:06)
[2019-01-17] MEDS ORDERED: ACETAMINOPHEN TAB 325 MG TAB PO PRN (16:06)
[2019-01-17] MEDS ORDERED: NALOXONE 0.4 MG/ML 1 ML VIAL IV PRN (16:06)
--- NOTE | 2019-01-17 16:57 | CT ---
EXAMINATION TYPE: CT angio chest DATE OF EXAM: 01/17/2019 4:38 PM COMPARISON: None HISTORY: Increased shortness of breath. CT DLP: 203.7 mGycm Automated exposure control for dose reduction was used. CONTRAST: CTA scan of the thorax is performed with IV Contrast, patient injected with 80 mL of Isovue 370, pulm onary embolism protocol. There are 3-D post processed images.. FINDINGS: There is a large infiltrative type mass in the superior mediastinum and extending inferiorly into the left pulmonary hilum and subcarinal region. There is encasement of the left pulmonary artery. I see no filling defects in the pulmonary arteries. Thoracic aorta is atheromatous. There is a 1 cm somewhat spiculated infiltrate in the superior segment left lower lobe. There is coar se interstitial density in both lungs. There are bilateral pleural effusions with interstitial infilt rates and atelectasis at the lung bases. There is no pericardial effusion. There is T12 compression deformity of 30% with some osteosclerosis. 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 There is reflux of contrast into the inferior vena cava that could relate to christina estive heart failure. IMPRESSION: NO EVIDENCE OF PULMONARY EMBOLISM. THERE ARE NEW PLEURAL EFFUSIONS COMPARED TO OLD EXAM. THERE IS UPP ER ABDOMINAL AORTIC ANEURYSM. THIS APPEARS UNCHANGED COMPARED TO CT SCAN LUMBAR SPINE OF 12/17/2018. T here could be acute heart failure. There is a large infiltrative mass in the mediastinum consistent with tumor that is increased compare d to old exam. This measures minimum 6 cm in dimension. There is new compression fracture of T12 that could be pathologic fracture compared to 11/02/2018 exam .
[2019-01-17] MEDS ORDERED: FUROSEMIDE 10 MG/ML 4 ML VIAL IV STA (17:12)
[2019-01-17 17:50] LABS: Glucose,Whole Blood 157 mg/dL (75-99)
[2019-01-17 18:47] VITALS: BMI 17.5
[2019-01-17] MEDS: IPRATROPIUM-ALBUTEROL 3 ML NEB INHALATION SCH (19:06)
[2019-01-17] MEDS: FORMOTEROL FUMARATE 20 MCG/2 ML NEBU INHALATION SCH (19:06)
[2019-01-17] MEDS: BUDESONIDE 1 MG/2 ML NEBU INHALATION SCH (19:06)
[2019-01-17] MEDS: methylPREDNISolone SOD SUCCI 125 MG/2 ML VIAL IV SCH (20:46)
--- NOTE | 2019-01-17 21:41 | HP ---
HISTORY AND PHYSICAL CHIEF COMPLAINTS: Chest pain, shortness of breath. HISTORY OF PRESENT ILLNESS: This 78-year-old woman with a past medical history of stage IV lung cancer, receiving chemotherapy, history of CAD, CHF, COPD, hypertension, hyperlipidemia, being followed by Dr. Drummond and Dr. Caceres in the outpatient setting was apparently complaining of chest pain, shortness of breath. The patient came to [facility]. Patient was recently continued with Lasix and given IV fluids for hypotension. The patient is undergoing chemotherapy. Because of multiple symptomatology, patient came to [facility] Emergency Room and was admitted for further evaluation and treatment. Patient was found to be in acute hypoxic respiratory failure. Patient started on BiPAP. BiPAP settings were 12, 6, 12, 100% FiO2. The pulse ox improved to 100 percent, but the patient is still stuporous. The patient admitted to ICU at this time. A detailed history cannot be taken from the patient. Most of the history taken from my discussion with staff, discussions with family members and as well as review of the chart. ABG showed pH of 7.25, indicating acute respiratory acidosis also at this time. The lactic acid elevated for possible sepsis. Troponin is indeterminate at 0.77. PAST MEDICAL HISTORY: CAD, history of CHF, history of lung cancer, asthma, COPD, hypertension, history of DJD, history of CAD/stent. MEDICATIONS: Home medications are: 1. Aldactone 12.5 mg p.o. daily. 2. Multivitamin 1 p.o. daily. 3. Toprol-XL 25 mg p.o. daily. 4. [place] 7.5 q.4 p.r.n. 5. Lipitor 80 mg q.h.s. 6. Aspirin 81 mg p.o. b.i.d. ALLERGIES: SHELLFISH, FAMILY HISTORY: History of coronary artery disease, myocardial infarction, ETOH abuse. SOCIAL HISTORY: Previous history of alcohol. No current smoking. REVIEW OF SYSTEMS: Could not be taken because the patient is stuporous. PHYSICAL EXAM: Pulse is 112, blood pressure 130/67, respiration 27, temperature 97.2. Pulse ox 100 percent. BiPAP settings as mentioned earlier. HEENT: Conjunctivae normal. Oral mucosa moist. Neck is no jugular venous distention. No carotid bruit. No lymph node enlargement. Cardiovascular system: S1, S2 muffled. No S3, no S4. Respirations: Breath sounds diminished in the bases. Bilateral scattered rhonchi and crackles. ABDOMEN: Soft. Scaphoid, nontender. LEGS: No edema, no swelling. Nervous system: Diffusely weak. SKIN: No ulcers, rashes or bleeding. JOINTS: No active deforming arthropathies. LABS: WBC 8.2, hemoglobin 9.9. ABGs noted. Sodium 130, other labs are noted. Lactic acid noted. ASSESSMENT: 1. Shortness of breath with chronic obstructive pulmonary disease, acute exacerbation with acute hypoxic respiratory failure with acute respiratory acidosis on BiPAP. 2. Stage IV lung cancer with mets on chemotherapy. 3. Elevated lactic acid with possible sepsis, present on admission. 4. Troponin 0.77, indeterminate. 5. Possible urinary tract infection present on admission. 6. Anemia, normocytic anemia of malignancy. 7. History of congestive heart failure. 8. Chronic obstructive pulmonary disease. 9. Hypertension. 10.History of hyperlipidemia. 11.History of degenerative joint disease. 12.History of rheumatoid arthritis. 13.History of circulation problems . 14.History of coronary artery disease/ stent. 15.Continued ongoing nicotine dependence. 16.Severe protein calorie malnutrition with BMI of 17.6. RECOMMENDATIONS AND DISCUSSION: This 78-year-old woman who presented with multiple complex medical issues, we will monitor the patient closely, continue the current medications, management and symptomatic treatment. We will initiate cefepime and vancomycin. Obtain cultures. IV steroids, BiPAP, bronchodilators. Resume the home medications. DVT prophylaxis. I would also recommend consultation with Dr. Aleman for ICU management and continue to monitor. We will also consult Dr. Caceres and Oncology as well. The overall prognosis guarded because of multiple complex medical issues. Further recommendations to follow. The patient currently is apparently FULL CODE. I discussed the case with 2 sisters who will talk with the son. The overall prognosis extremely guarded which is stressed with the family, who understood and agrees now but we however, we will wait for the input from her one abled son according to the family and we will go from there. The patient will be appropriate for NO CODE at this stage. Once again, the prognosis guarded. Further recommendations to follow. MMODL / IJN: [id number] / JOESPH
[2019-01-17] MEDS: NICOTINE 14MG/24HR PATCH TRANSDERM SCH (21:49)
[2019-01-17] MEDS: HEPARIN SODIUM,PORCINE 5,000 UNIT/ML 1 ML VIAL SQ SCH (21:56)
[2019-01-17] MEDS: CEFEPIME 2 GM in SODIUM CHLORIDE 0.9% 100 ML IVPB SCH (21:56)
[2019-01-17] MEDS: SODIUM CHLORIDE 0.9% 1,000 ML IV SCH (21:56)
[2019-01-17] MEDS: INSULIN ASPART (NovoLOG) 100 UNIT/ML VIAL SQ SCH (22:02)
[2019-01-17 22:05] LABS: Glucose,Whole Blood 122 mg/dL (75-99)
[2019-01-18] MEDS: methylPREDNISolone SOD SUCCI 125 MG/2 ML VIAL IV SCH ×2 (00:30→06:18)
[2019-01-18] MEDS ORDERED: SODIUM CHLORIDE 0.9% 1,000 ML IV ONE (01:43)
[2019-01-18] MEDS: MORPHINE SULFATE 2 MG/ML SYRINGE IV PRN (04:06)
[2019-01-18] MEDS ORDERED: NOREPINEPHRINE 4 MG in SODIUM CHLORIDE 0.9% 250 ML IV SCH (04:30)
[2019-01-18 04:49] LABS: Basophils % (A) 0 %; Eosinophils % (A) 0 %; HCT 32.8 % (34.0-46.0); HGB 9.5 gm/dL (11.4-16.0); Hypochromasia Marked; Lymphocytes # (A) 0.2 k/uL (1.0-4.8); Lymphocytes % (A) 2 %; MCH 25.6 pg (25.0-35.0); MCV 88.3 fL (80.0-100.0); Mean Platelet Volume 8.2; Monocytes # (A) 0.1 k/uL (0-1.0); Monocytes % (A) 1 %; Neutrophils # (A) 8.9 k/uL (1.3-7.7); Neutrophils % (A) 96 %; Platelet Count 186 k/uL (150-450); RBC 3.71 m/uL (3.80-5.40); RDW 15.5 % (11.5-15.5); WBC 9.3 k/uL (3.8-10.6)
[2019-01-18 05:17] LABS: Potassium 3.5 mmol/L (3.5-5.1)
[2019-01-18 05:41] LABS: Calcium 4.8 mg/dL (8.4-10.2)
[2019-01-18] MEDS: CEFEPIME 2 GM in SODIUM CHLORIDE 0.9% 100 ML IVPB SCH (06:17)
--- NOTE | 2019-01-18 07:52 | XR ---
EXAMINATION TYPE: XR chest 1V portable DATE OF EXAM: 01/18/2019 Comparison: 01/17/2019 Clinical History: 78 year-old female shortness of breath, difficulty breathing Findings: Heart mildly enlarged. Right hilar and left suprahilar soft tissue prominence redemonstrated. [place] right base and new small left pleural effusion with left basilar opacity. Impression: Increasing small effusions with new bibasilar areas of infiltrate or developing pulmonary edema. Know n mediastinal mass.
[2019-01-18] MEDS: FORMOTEROL FUMARATE 20 MCG/2 ML NEBU INHALATION SCH ×2 (08:00→19:27)
[2019-01-18] MEDS: IPRATROPIUM-ALBUTEROL 3 ML NEB INHALATION SCH ×4 (08:01→19:27)
[2019-01-18] MEDS: BUDESONIDE 1 MG/2 ML NEBU INHALATION SCH ×2 (08:01→19:27)
[2019-01-18] MEDS ORDERED: METOPROLOL TARTRATE 12.5 MG TAB PO SCH (09:00)
[2019-01-18 09:21] LABS: Glucose,Whole Blood 101 mg/dL (75-99)
[2019-01-18] MEDS: FUROSEMIDE 10 MG/ML 2 ML VIAL IV SCH ×2 (09:24→14:09)
[2019-01-18] MEDS: PANTOPRAZOLE 40 MG/10 ML VIAL IVP SCH (09:25)
[2019-01-18] MEDS: HEPARIN SODIUM,PORCINE 5,000 UNIT/ML 1 ML VIAL SQ SCH ×2 (09:28→21:32)
[2019-01-18] MEDS: NICOTINE 14MG/24HR PATCH TRANSDERM SCH (09:29)
[2019-01-18] MEDS: POTASSIUM CHLORIDE 10 MEQ in WATER FOR INJECTION 1 100ML.BAG IVPB SCH ×2 (09:29→11:09)
[2019-01-18] MEDS: INSULIN ASPART (NovoLOG) 100 UNIT/ML VIAL SQ SCH ×4 (09:29→21:32)
[2019-01-18] MEDS: AMOXIC-POT CLAV 875-125MG 1 EACH TAB PO SCH ×2 (09:31→21:32)
--- NOTE | 2019-01-18 10:16 | CONS ---
CONSULTATION PULMONARY/CRITICAL CARE CONSULTATION: DATE OF CONSULTATION: 01/18/2019 This is a 78-year-old female who presented to the emergency room on January 17. She has a history of advanced metastatic lung cancer, small cell type. The patient was recently diagnosed with lung cancer based on a liver biopsy done on December [address] Adhikari. The patient has a significant mass in the chest as well as liver metastasis. Anyway, the patient came in with some central chest pain. She also had worsening shortness of breath. For that reason, she was sent to be evaluated. She is apparently recently at the [facility] receiving chemotherapy. She apparently denied any fever or chills. There was no edema in the lower extremities. There is no abdominal pain, nausea, or vomiting. No diarrhea. It primarily came down to shortness of breath and chest pain. Anyway, the patient was recently seen by my partner, Dr. Drummond in the clinic. I believe she was seen on January 10. Currently, the patient seems to be doing relatively well. She was on BiPAP at 12 and 6 and 55%. I asked the nurses to take the BiPAP off and put her on nasal O2. She was also on normal saline at 75 mL an hour. She had the liver biopsy done by Dr. Adhikari on December 19, which showed a small cell lung cancer. She was admitted to the hospital on 01/17 and moved to the ICU on the 01/17 as well. We did talk today about code status. She would not want to be on life support. I believe that is very reasonable and we are going to take her off the BiPAP and put her on some nasal prongs and see how she does. She seemed relatively comfortable. She is sitting up in the chair at the bedside. CURRENT HOME MEDICATIONS: Include aspirin, atorvastatin, metoprolol, Aldactone, multivitamins, and [place]. ALLERGIES: SHELLFISH, IODINE, and NICKEL. MEDICAL HISTORY: Includes CAD, lung cancer diagnosed by liver biopsy recently at the end of November, CHF, COPD, hyperlipidemia, hypertension, myocardial infarction, DJD and rheumatoid arthritis. 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 In addition, she has a history of valvular heart disease and gallstone. SURGICAL HISTORY: Includes heart catheterization with stent placement, hysterectomy, orthopedic procedures including left wrist surgery, transesophageal echocardiogram, aortogram, colonoscopy, infrarenal aortic stent placement, heart catheterizations in 2014 and 2015 and gallstone removal. SOCIAL HISTORY: Positive for ongoing tobacco use. Denies any significant alcohol or illicit drug use. FAMILY HISTORY: Includes CVA in her daughters at a relatively young age as well as heart attack. She also has a family history of heart valve problems. In addition, she has a son with CAD, myocardial infarction, and a mother with alcohol abuse. REVIEW OF SYSTEMS: CONSTITUTIONAL: Negative. NEUROLOGIC: Negative. HEENT: Negative. CARDIOVASCULAR: Negative. PULMONARY: Shortness of breath, currently wearing BiPAP. GI: Negative. : Negative. RHEUMATOLOGIC: Negative. IMMUNOLOGIC: Negative. HEMATOLOGIC: Negative. ENDOCRINOLOGIC: Negative. DERMATOLOGIC Negative. Current vital signs are reviewed. Temperature is 98.1, heart rate 100, respiratory rate 24, blood pressure 102/69 mean 80 and saturations are excellent on BiPAP but also excellent on 3 L nasal cannula. Saturations are mid-to-high 90s. Appears in no acute distress. No respiratory distress. HEENT: Examination is grossly unremarkable. BiPAP mask in place. NECK: Supple. Full range of motion. No adenopathy or thyromegaly. Neck veins are flat. CARDIOVASCULAR: Examination reveals regular rhythm and rate. She is mildly tachycardic. Heart rate about 105. S1, S2 normal. LUNGS: Reveal diminished breath sounds throughout. There are a few scattered rhonchi. No wheezes or crackles. ABDOMEN: Soft bowel sounds are heard. EXTREMITIES: Intact. No cyanosis, clubbing, or edema. SKIN: Without rash. NEUROLOGIC: Examination is brief but nonfocal. LAB DATA: Reviewed. White count 9.3, hemoglobin 9.5, hematocrit 32.8, platelet count 186,000. Sodium, potassium normal. Chloride is 120, CO2 is 15, anion gap is 6. BUN and creatinine were 33 and 1.17. Lactic acid 4.9, calcium 4.8. Her N-terminal proBNP was 52,200. Troponin was 0.077 and urine was cloudy with 2+ protein, 25 WBCs, 7 squamous epithelial cells for hyaline casts, 4 granular casts and rare mucus. Most recent chest x-ray shows bilateral effusions with bibasilar areas of infiltrate. There is also a mediastinal mass/left superior parahilar mass. A CT angiogram done yesterday reveals no evidence of pulmonary embolism. There are bilateral pleural effusions. There is an upper abdominal aortic aneurysm. There is a large infiltrative mass in the mediastinum consistent with tumors that is increased compared to old exam. This measures 6 cm in dimension. There is a compression fracture at T12. The compression fracture could be a pathologic fracture as well. We do know that there are liver mets. Medications are reviewed. ASSESSMENT: 1. Shortness of breath and chest pain, likely related to congestive heart failure. 2. Recent diagnosis on December 19 by liver biopsy of a neuroendocrine cancer, consistent with lung primary. 3. History of ongoing tobacco use with nicotine addiction. 4. Chronic obstruction pulmonary disease exacerbation. 5. No evidence of pulmonary embolism by CT angiogram. 6. History of coronary artery disease. 7. History of heart failure. 8. History of hyperlipidemia. 9. History of chronic obstructive pulmonary disease. 10.History of hypertension. 11.Myocardial infarction by history. 12.Degenerative joint disease. 13.Rheumatoid arthritis by history. 14.Peripheral vascular occlusive disease. 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 16.Valvular heart disease. PLAN: Medications are reviewed. Please see my orders. Will continue to follow very closely. The patient's overall prognosis is very poor. We are going to take her off the BiPAP and put her on nasal prongs. We did have a conversation today about code status. She wishes not to be on life support and mechanical ventilation. I think that is appropriate. Short of that, we will continue to everything we can get her feeling better and doing better. If she becomes short of breath, we can place her back on the BiPAP. No additional recommendations are made. Will continue to follow. Medications, problem list, allergies and all radiologic tests are reviewed. MMODL / IJN: [id number] /
[2019-01-18 11:40] LABS: Glucose,Whole Blood 131 mg/dL (75-99)
[2019-01-18] MEDS ORDERED: VANCOMYCIN 750 MG in SODIUM CHLORIDE 0.9% 250 ML IVPB SCH (12:00)
[2019-01-18] MEDS: methylPREDNISolone SOD SUCCI 40 MG/ML 1 ML VIAL IV SCH ×3 (12:21→23:44)
--- NOTE | 2019-01-18 14:51 | P.CONS ---
History of Present Illness - Reason for Consult Consult date: 01/18/19 Recent Diagnosis of Metastatic Small Cell Lung Ca Requesting physician: Jb Ott - Chief Complaint Shortness of breath - History of Present Illness This is a very nice lady who had a CT scan of chest on 11/02/2018,it was a preop CT scan prior to valve repair which revealed large left upper lobe mass. She reported progressive dyspnea,lack of appetite and about 16 pounds weight loss for a bout 4 months duration. On 11/25/2018,she had a PET scan which revealed left upper lobe mass,about 6 cm,another prevascular mass,3.3cm,suspicious liver mass,about 3.3cm,numerous osseous metastasis. On 12/19/2018,CT guided biopsy of the liver lesion was positive for small cell carcinoma. She was seen in first consultation on 12/24/[address] Caceres: At that time admitted to 16 pounds within the last 4 months, back pain, 5/5 in severity, controlled with norco (was given rx for it when she was inpatient), has exertional dyspnea, has been using wheelchair when she goes out of her house for long time due to osteoarthritis, she has a questionable history of rheumatoid a rthritis, however, never had any active treatment for it and last time she saw certified juvenile probation officer was over 5 years ago. She was initiated on cycle one of treatment with Carboplatin/VP16/Tecentriq on 01/15. Her Blood Pressure was low during treatment and therefore she was transported to emergency for further evaluation. On presentation Hypotensive, Tachycardic and Hypoxic. Urine and Blood Cultures ordered and in process, CTA was complted and negative for Acute PE. Her lactic acid is increased, today 4.9, calcium 4.8 (will await ionized calcium as prior was 7). She has been admitted to ICU for close monitoring and supportive care. She is thin on bipap, awake and alert during evaluation. Family at bedside Review of Systems A 14 point review of systems assessed and completed and all negative except HPI Past Medical History Past Medical History: Coronary Artery Disease (CAD), Cancer, Heart Failure, COPD, Hyperlipidemia, Myocardial Infarction (PA), Osteoarthritis (OA), Rheumatoid Arthritis (RA) Additional Past Medical History / Comment(s): circulation problems in legs, had polio as a child, some weakness in legs, liver mass, "leaking heart valve, not sure which one", gallstones, stage 4 CA; small cell lung cancer Last Myocardial Infarction Date:: 2014 History of Any Multi-Drug Resistant Organisms: None Reported Past Surgical History: Heart Catheterization With Stent, Hysterectomy, Orthopedic Surgery Additional Past Surgical History / Comment(s): LEFT WRIST, SUMA, aortogram 02-26-14, LT WRIST SX, COLONOSCOPY, history of infrarenal aortic stent placement, history of heart catheterization in 2014 and in 2013 with stent, gallstones removal. Past Anesthesia/Blood Transfusion Reactions: No Reported Reaction Date of Last Stent Placement:: 2013? Past Psychological History: No Psychological Hx Reported Smoking Status: Current every day smoker Past Alcohol Use History: None Reported Additional Past Alcohol Use History / Comment(s): SMOKES 1 PPD SINCE AGE 23 Past Drug Use History: None Reported - Past Family History Daughter(s) Additional Family Medical History / Comment(s): BOTH DAUGHTER HAS - 1- AGE 35 STROKE AND HEART ATTACK, 2-HEART VALVE PROBLEM AND IN 2014 AGE 52 Son(s) Family Medical History: Coronary Artery Disease (CAD), Myocardial Infarction (PA) Mother Additional Family Medical History / Comment(s): ETOH abuse Medications and Allergies Home Medications Medication Instructions Recorded Confirmed Type Aspirin 81 mg PO BID 12/13/14 01/17/19 History Atorvastatin [Lipitor] 80 mg PO HS 10/30/18 01/17/19 History Metoprolol Succinate [Toprol XL] 25 mg PO DAILY 10/30/18 01/17/19 History Spironolactone [Aldactone] 12.5 mg PO DAILY 10/30/18 01/17/19 History HYDROcodone/APAP 7.5-325MG [[place] 1 tab PO Q4H PRN 3 Days #18 tab 12/17/18 01/17/19 Rx 7.5-325] Multivitamins, Thera [Multivitamin 1 tab PO DAILY 01/17/19 01/17/19 History (formulary)] Allergies Allergy/AdvReac Type Severity Reaction Status Date / Time shellfish derived Allergy Severe Anaphylaxis Verified 01/17/19 13:59 iodine Allergy Rash/Hives Verified 01/17/19 13:59 nickel [Nickel] Allergy Rash/Hives Verified 01/17/19 13:59 Physical Exam Vitals: Vital Signs Temp Pulse Resp BP Pulse Ox 01/18/19 14:00 97 24 86/57 99 01/18/19 13:30 90 23 87/62 97 01/18/19 13:00 93 23 87/62 98 01/18/19 12:30 93 14 82/63 99 01/18/19 12:00 97.7 F 95 24 89/60 98 01/18/19 11:52 107 H 01/18/19 11:39 108 H 01/18/19 11:30 113 H 18 86/65 98 01/18/19 11:00 118 H 29 H 85/64 96 01/18/19 10:30 112 H 27 H 84/56 98 01/18/19 10:00 111 H 22 99/69 98 01/18/19 09:30 112 H 21 99/69 98 01/18/19 09:00 107 H 21 99/69 98 01/18/19 08:30 129 H 35 H 96/67 99 01/18/19 08:15 111 H 01/18/19 08:04 107 H 01/18/19 08:00 98.1 F 111 H 24 102/69 100 01/18/19 07:30 101 H 18 103/91 99 01/18/19 07:00 104 H 25 H 101/65 99 01/18/19 06:30 98 19 96/69 99 01/18/19 06:00 99 15 84/57 99 01/18/19 05:30 97 15 89/58 99 01/18/19 05:00 92 17 91/60 100 01/18/19 04:30 97 21 83/58 99 01/18/19 04:00 97.8 F 101 H 18 88/56 100 01/18/19 03:30 90 15 84/53 100 01/18/19 03:00 87 16 81/56 100 01/18/19 02:30 90 16 84/56 100 01/18/19 02:00 98 22 115/60 100 01/18/19 01:30 102 H 24 91/63 99 01/18/19 01:00 96 21 90/62 98 01/18/19 00:30 86 33 H 88/57 100 01/18/19 00:00 97.2 F L 93 16 94/66 98 01/17/19 23:30 87 14 92/63 100 01/17/19 23:00 96 20 69/50 99 01/17/19 22:30 86 18 73/48 100 01/17/19 22:00 86 19 103/68 99 01/17/19 21:30 93 20 72/42 100 01/17/19 21:00 91 25 H 71/54 100 01/17/19 20:30 97.5 F L 93 23 80/51 100 01/17/19 20:00 85 19 75/50 97 01/17/19 19:30 98 26 H 83/55 100 01/17/19 19:26 98 01/17/19 19:16 100 01/17/19 19:15 101 H 01/17/19 19:06 101 H 01/17/19 19:00 104 H 29 H 92/57 100 01/17/19 18:30 108 H 28 H 108/65 100 01/17/19 18:00 97.6 F 112 H 27 H 113/67 100 01/17/19 17:30 117 H 23 100 01/17/19 17:00 115 H 23 96/80 100 01/17/19 16:00 111 H 24 90/78 99 01/17/19 15:30 114 H 29 H 96/69 95 01/17/19 15:00 109 H 22 108/79 93 L 01/17/19 14:30 106 H 22 97/84 90 L Intake and Output 01/17/19 01/18/19 01/18/19 22:59 06:59 14:59 Intake Total 475 2625 600 Output Total 165 465 175 Balance 310 2160 425 Intake: IV 325 2625 600 Cefepime 2 gm In Sodium 100 100 Chloride 0.9% 100 ml @ 200 mls/hr IVPB Q8H CARLOS Rx#:[id number] Sodium Chloride 0.9% 1, 225 2525 600 000 ml @ 75 mls/hr IV . [id number] CARLOS Rx#:[id number] Intake, IV Titration 150 Amount Sodium Chloride 0.9% 1, 150 000 ml @ 75 mls/hr IV . [id number] CARLOS Rx#:[id number] Output: Urine 165 465 175 Other: Voiding Method Indwelling Catheter Indwelling Catheter Weight 47.3 kg Gen: Thin, Cachetic Head: NCNT Bipap on could not assess oral mucosa Lungs: Diminished, mild increased effort Heart: Tachy Abdomen: Soft, FLat Ext: No edema Neuro no sensory or motor deficits Results CBC & Chem 7: 01/18/19 04:25 01/18/19 14:50 Labs: Abnormal Lab Results - Last 24 Hours (Table) 01/17/19 01/17/19 01/17/19 Range/Units 13:29 14:19 14:24 RBC (3.80-5.40) m/uL Hgb (11.4-16.0) gm/dL Hct (34.0-46.0) % MCHC (31.0-37.0) g/dL Neutrophils # (1.3-7.7) k/uL Lymphocytes # (1.0-4.8) k/uL ABG pH 7.25 L (7.35-7.45) ABG pO2 >400 H (83-108) mmHg ABG HCO3 17 L (21-25) mmol/L ABG Total CO2 18 L (19-24) mmol/L ABG O2 Saturation 99.4 H (94-97) % Chloride (98-107) mmol/L Carbon Dioxide (22-30) mmol/L BUN (7-17) mg/dL Creatinine (0.52-1.04) mg/dL POC Glucose (mg/dL) (75-99) mg/dL Plasma Lactic Acid Scott (0.7-2.0) mmol/L Calcium (8.4-10.2) mg/dL Troponin I 0.077 H* (0.000-0.034) ng/mL Urine Appearance Cloudy H (Clear) Urine Protein 2+ H (Negative) Urine WBC 25 H (0-5) /hpf Ur Squamous Epith Cells 7 H (0-4) /hpf Hyaline Casts 4 H (0-2) /lpf Urine Mucus Rare H (None) /hpf 01/17/19 01/17/19 01/17/19 Range/Units 16:48 17:49 21:26 RBC (3.80-5.40) m/uL Hgb (11.4-16.0) gm/dL Hct (34.0-46.0) % MCHC (31.0-37.0) g/dL Neutrophils # (1.3-7.7) k/uL Lymphocytes # (1.0-4.8) k/uL ABG pH (7.35-7.45) ABG pO2 (83-108) mmHg ABG HCO3 (21-25) mmol/L ABG Total CO2 (19-24) mmol/L ABG O2 Saturation (94-97) % Chloride (98-107) mmol/L Carbon Dioxide (22-30) mmol/L BUN (7-17) mg/dL Creatinine (0.52-1.04) mg/dL POC Glucose (mg/dL) 157 H (75-99) mg/dL Plasma Lactic Acid Scott 7.2 H* 4.9 H* (0.7-2.0) mmol/L Calcium (8.4-10.2) mg/dL Troponin I (0.000-0.034) ng/mL Urine Appearance (Clear) Urine Protein (Negative) Urine WBC (0-5) /hpf Ur Squamous Epith Cells (0-4) /hpf Hyaline Casts (0-2) /lpf Urine Mucus (None) /hpf 01/17/19 01/18/19 01/18/19 Range/Units 22:01 04:25 04:25 RBC 3.71 L (3.80-5.40) m/uL Hgb 9.5 L (11.4-16.0) gm/dL Hct 32.8 L (34.0-46.0) % MCHC 29.0 L (31.0-37.0) g/dL Neutrophils # 8.9 H (1.3-7.7) k/uL Lymphocytes # 0.2 L (1.0-4.8) k/uL ABG pH (7.35-7.45) ABG pO2 (83-108) mmHg ABG HCO3 (21-25) mmol/L ABG Total CO2 (19-24) mmol/L ABG O2 Saturation (94-97) % Chloride 120 H (98-107) mmol/L Carbon Dioxide 15 L (22-30) mmol/L BUN 33 H (7-17) mg/dL Creatinine 1.17 H (0.52-1.04) mg/dL POC Glucose (mg/dL) 122 H (75-99) mg/dL Plasma Lactic Acid Scott (0.7-2.0) mmol/L Calcium 4.8 L* (8.4-10.2) mg/dL Troponin I (0.000-0.034) ng/mL Urine Appearance (Clear) Urine Protein (Negative) Urine WBC (0-5) /hpf Ur Squamous Epith Cells (0-4) /hpf Hyaline Casts (0-2) /lpf Urine Mucus (None) /hpf 01/18/19 01/18/19 Range/Units 09:18 11:36 RBC (3.80-5.40) m/uL Hgb (11.4-16.0) gm/dL Hct (34.0-46.0) % MCHC (31.0-37.0) g/dL Neutrophils # (1.3-7.7) k/uL Lymphocytes # (1.0-4.8) k/uL ABG pH (7.35-7.45) ABG pO2 (83-108) mmHg ABG HCO3 (21-25) mmol/L ABG Total CO2 (19-24) mmol/L ABG O2 Saturation (94-97) % Chloride (98-107) mmol/L Carbon Dioxide (22-30) mmol/L BUN (7-17) mg/dL Creatinine (0.52-1.04) mg/dL POC Glucose (mg/dL) 101 H 131 H (75-99) mg/dL Plasma Lactic Acid Scott (0.7-2.0) mmol/L Calcium (8.4-10.2) mg/dL Troponin I (0.000-0.034) ng/mL Urine Appearance (Clear) Urine Protein (Negative) Urine WBC (0-5) /hpf Ur Squamous Epith Cells (0-4) /hpf Hyaline Casts (0-2) /lpf Urine Mucus (None) /hpf Microbiology - Last 24 Hours (Table) 01/17/19 14:24 Urine Culture - Preliminary Urine,Catheterized Chest x-ray: report reviewed CT scan - chest: report reviewed Assessment and Plan Plan: Assessment and recommendations: Extensive Stage Small Cell Lung Cancer: Liver and Bone - Initiated on cycle one of treatment on 01/15/19 with Carboplatin, RESIDENTIAL PROGRAM DIRECTOR-16 and Tecentriq - Currently on hold until acute situation improves - Treatment GOal is palliative intent. SIRS: 2/4 Hypotensive/Tachycardic Hypcalcemia, Lactic Acidosis: - Novoa Cultures in process - Ionized Calcium Hypoxic Respiratory Failure: - Pulmonary and ICU Management Plan: - Recheck calcium and supp PRN - Monitor for Tumor Lysis, LDH and Uric Acid ordered - Await cultures - Continue Supportive Care - Await 24-48 hours and monitor for improvement and tumor lysis.
[2019-01-18 15:33] LABS: Ionized Calcium 3.6 mg/dL (4.5-5.3)
[2019-01-18 15:36] LABS: Magnesium 2.1 mg/dL (1.6-2.3); Potassium 5.4 mmol/L (3.5-5.1); Uric Acid 13.5 mg/dL (3.7-7.4)
--- NOTE | 2019-01-18 15:37 | CONS ---
CONSULTATION DATE OF CONSULTATION: Mrs. Lena Iglesias is a 78-year-old lady with a known history of metastatic advanced small-cell type lung cancer. She was diagnosed recently with lung cancer based on liver biopsy on December 19. She has a significant mass in the chest as well as liver metastasis. She also has significant CAD with left main disease as well as right coronary artery disease and also has significant severe mitral regurgitation. She was initially advised for aortocoronary bypass surgery but subsequently, because of the diagnosis of cancer, she was advised medical therapy only. She has also received chemotherapy and was at the [facility] when she developed increasing shortness of breath, chest discomfort, and was admitted to the hospital. She was initially on BiPAP, and after taking the BiPAP off, her oxygenation seemed to be fairly decent today. She denies chest pain. She is not very communicative. She is relatively comfortable. Denies chest discomfort. Her troponin shows mild elevation at 0.077. Her BNP is also up to 52,000, suggestive of congestive heart failure. At the time of my evaluation, she is not in any severe distress. I was asked to see her regarding her CAD and elevated troponin. On reviewing the old chart, I noted that this patient had a transesophageal echo which revealed severe mitral regurgitation, and ejection fraction is in the 40% range. She has a chronic total occlusion of right coronary artery filling by collaterals from the left system with a significant left main 70% stenosis with calcification. The circumflex has an independent 60% lesion and also there is calcification and moderate LAD disease. Medications at home include: 1. Aldactone. 2. Multivitamins. 3. Toprol-XL 25 mg daily. 4. Pain medications. 5. Lipitor 80 mg daily. 6. Aspirin 81 mg daily. ALLERGIES: She is ALLERGIC TO IODINE. PHYSICAL EXAMINATION: On examination, her blood pressure is about 90 systolic. Pulse rate is about 90. HEENT: Limited exam is unremarkable. Fundus was not examined by me. Neck is supple. There is JVD of 1 cm. No carotid bruit. Heart exam reveals S1, S2 with tachycardia, short systolic murmur. Lungs reveal scattered rhonchi, diminished air entry. Abdomen is soft, nontender. Lower extremities reveal diminished pulses. EKG revealed sinus tachycardia with isolated PVCs and diffuse nonspecific ST and T-wave changes. Laboratory data suggests that her troponin is elevated (the initial one). Lactic acid was high, but there is some improvement in that as well. IMPRESSION: 1. Acute respiratory failure secondary to her pulmonary disease and also cardiac disease. 2. History of metastatic lung carcinoma, on chemotherapy with infusion; developed more shortness of breath requiring hospitalization. 3. History of coronary artery disease with left main 70% stenosis and occlusion of right coronary artery totally with severe mitral regurgitation. Clinical picture does raise the possibility of a small lau-ST-liuucadaf DE. However, her respiratory failure is being addressed by Dr. Aleman. She is clinically doing better than when she came in. Her potassium is low and I am recommending that this be replenished. We will start her on a small dose of beta ember, Lopressor 12.5 mg t.i.d., and will cautiously diurese her with Lasix 20 mg q.8 hours and see how she does. I will get an additional troponin level as well. Based on her clinical course, I will make further recommendations. Prognosis remains poor. Her prognosis from a coronary disease standpoint and mitral regurgitation standpoint as well as cancer standpoint is quite poor, and we should seriously consider her CODE STATUS, and also comfort care measures should probably be initiated. I discussed my thoughts with the patient, but I am not sure how much she comprehends. Thank you very much for the consult. GLENDY / ZENY: [id number] /
[2019-01-18] MEDS: SODIUM CHLORIDE 0.9% 1,000 ML IV SCH (15:39)
[2019-01-18] MEDS: LORazepam 2 MG/ML INJ IV PRN (15:39)
[2019-01-18 16:04] LABS: LDH >21500 U/L (313-618)
[2019-01-18 16:50] LABS: Glucose,Whole Blood 107 mg/dL (75-99)
[2019-01-18] MEDS ORDERED: SODIUM CHLORIDE 0.9% 500 ML 500 ML IV ONE (18:00)
[2019-01-18] MEDS ORDERED: CALCIUM GLUCONATE 2 GM in SODIUM CHLORIDE 0.9% 100 ML IVPB ONE (18:31)
[2019-01-18 19:21] LABS: Glucose,Whole Blood 104 mg/dL (75-99)
[2019-01-18] MEDS: ONDANSETRON 4 MG/2 ML VIAL IVP PRN (20:12)
[2019-01-18 20:59] LABS: Glucose,Whole Blood 106 mg/dL (75-99)
[2019-01-19] MEDS: ONDANSETRON 4 MG/2 ML VIAL IVP PRN (03:09)
[2019-01-19 04:01] VITALS: TEMP 97.6
[2019-01-19] MEDS: LORazepam 2 MG/ML INJ IV PRN ×3 (04:06→15:15)
[2019-01-19 05:15] LABS: Basophils # (A) 0.1 k/uL (0-0.2); Basophils % (A) 0 %; Eosinophils # (A) 0.1 k/uL (0-0.7); Eosinophils % (A) 0 %; HCT 33.5 % (34.0-46.0); HGB 9.8 gm/dL (11.4-16.0); Hypochromasia Marked; Lymphocytes # (A) 0.1 k/uL (1.0-4.8); Lymphocytes % (A) 0 %; MCH 26.1 pg (25.0-35.0); MCHC 29.4 g/dL (31.0-37.0); Mean Platelet Volume 9.1; Monocytes # (A) 0.1 k/uL (0-1.0); Monocytes % (A) 1 %; Neutrophils % (A) 99 %; Platelet Count 123 k/uL (150-450); RBC 3.77 m/uL (3.80-5.40); RDW 15.5 % (11.5-15.5); WBC 28.3 k/uL (3.8-10.6)
[2019-01-19 05:28] LABS: Albumin 2.6 g/dL (3.5-5.0); Magnesium 2.1 mg/dL (1.6-2.3); Potassium 4.6 mmol/L (3.5-5.1); Total Bilirubin 0.9 mg/dL (0.2-1.3); Total Protein 5.2 g/dL (6.3-8.2)
[2019-01-19] MEDS: methylPREDNISolone SOD SUCCI 40 MG/ML 1 ML VIAL IV SCH (05:37)
[2019-01-19 05:54] LABS: Ionized Calcium 3.4 mg/dL (4.5-5.3)
[2019-01-19 06:22] LABS: Calcium 5.5 mg/dL (8.4-10.2)
--- NOTE | 2019-01-19 06:40 | XR ---
EXAMINATION TYPE: XR chest 1V DATE OF EXAM: 01/19/2019 HISTORY: CHF. REFERENCE: Previous study dated 01/18/2019. FINDINGS: The lungs are overinflated. There is improved aeration at the right lung base. There continues to be a small right effusion. Hear t size is upper limits of normal. IMPRESSION: 1. COPD. 2. BORDERLINE CARDIOMEGALY. 3. IMPROVED AERATION, RIGHT LUNG BASE.
[2019-01-19 06:51] LABS: Glucose,Whole Blood 109 mg/dL (75-99)
[2019-01-19 07:14] LABS: Crenated RBC Present
[2019-01-19] MEDS: FORMOTEROL FUMARATE 20 MCG/2 ML NEBU INHALATION SCH (07:14)
[2019-01-19] MEDS: BUDESONIDE 1 MG/2 ML NEBU INHALATION SCH (07:14)
[2019-01-19] MEDS: IPRATROPIUM-ALBUTEROL 3 ML NEB INHALATION SCH ×2 (07:14→13:25)
[2019-01-19 07:15] LABS: RBC Fragments Present
[2019-01-19 07:16] LABS: Anisocytosis (M) Present
[2019-01-19 07:17] LABS: Ovalocytes Present; Poikilocytosis (M) Present
--- NOTE | 2019-01-19 07:37 | P.NPCON ---
History of Present Illness - Reason for Consult acute renal failure - Chief Complaint Since from doctor's office for low blood pressure and shortness of breath - History of Present Illness 78-year-old white lady admitted to ICU for the above complaints. 4 weeks ago diagnosed with small cell lung cancer, left upper lobe with liver metastasis. She received 1 dose of chemotherapy ho-chunk-based on 01/15/2019. She was running low blood pressures during treatment and was referred to emergency. While she was in the ER she had a CT PE protocol with ATMS of contrast. No PE, bilateral pleural effusions. She was admitted to ICU currently on BiPAP. She was also on Lasix which was held as per the note, during treatment. She admits nausea vomiting and diarrhea. Denies NSAID use. Baseline creatinine of 0.7-0.8 MG per DL. On admission creatinine was 1.0, increased to 2.3G per DL today. Decreased urine output, metabolic acidosis. Blood pressures running 70-80 systolic. Currently not on any pressors. Home medications also includes metoprolol and Aldactone. Review of Systems Constitutional: Reports as per HPI Past Medical History Past Medical History: Coronary Artery Disease (CAD), Cancer, Heart Failure, COPD, Hyperlipidemia, Myocardial Infarction (MO), Osteoarthritis (OA), Rheumatoid Arthritis (RA) Additional Past Medical History / Comment(s): circulation problems in legs, had polio as a child, some weakness in legs, liver mass, "leaking heart valve, not sure which one", gallstones, stage 4 CA; small cell lung cancer Last Myocardial Infarction Date:: 2014 History of Any Multi-Drug Resistant Organisms: None Reported Past Surgical History: Heart Catheterization With Stent, Hysterectomy, Orthopedic Surgery Additional Past Surgical History / Comment(s): LEFT WRIST, SUMA, aortogram 02-26-14, LT WRIST SX, COLONOSCOPY, history of infrarenal aortic stent placement, history of heart catheterization in 2014 and in 2013 with stent, gallstones removal. Past Anesthesia/Blood Transfusion Reactions: No Reported Reaction Date of Last Stent Placement:: 2013? Past Psychological History: No Psychological Hx Reported Smoking Status: Current every day smoker Past Alcohol Use History: None Reported Additional Past Alcohol Use History / Comment(s): SMOKES 1 PPD SINCE AGE 23 Past Drug Use History: None Reported - Past Family History Daughter(s) Additional Family Medical History / Comment(s): BOTH DAUGHTER HAS - 1- AGE 35 STROKE AND HEART ATTACK, 2-HEART VALVE PROBLEM AND IN 2014 AGE 52 Son(s) Family Medical History: Coronary Artery Disease (CAD), Myocardial Infarction (MO) Mother Additional Family Medical History / Comment(s): ETOH abuse Medications and Allergies Home Medications Medication Instructions Recorded Confirmed Type Aspirin 81 mg PO BID 12/13/14 01/17/19 History Atorvastatin [Lipitor] 80 mg PO HS 10/30/18 01/17/19 History Metoprolol Succinate [Toprol XL] 25 mg PO DAILY 10/30/18 01/17/19 History Spironolactone [Aldactone] 12.5 mg PO DAILY 10/30/18 01/17/19 History HYDROcodone/APAP 7.5-325MG [[place] 1 tab PO Q4H PRN 3 Days #18 tab 12/17/18 01/17/19 Rx 7.5-325] Multivitamins, Thera [Multivitamin 1 tab PO DAILY 01/17/19 01/17/19 History (formulary)] Allergies Allergy/AdvReac Type Severity Reaction Status Date / Time shellfish derived Allergy Severe Anaphylaxis Verified 01/17/19 13:59 iodine Allergy Rash/Hives Verified 01/17/19 13:59 nickel [Nickel] Allergy Rash/Hives Verified 01/17/19 13:59 Physical Exam Vitals: Vital Signs Temp Pulse Resp BP Pulse Ox 01/19/19 07:15 111 H 01/19/19 06:00 107 H 28 H 86/52 99 01/19/19 05:00 108 H 17 90/60 99 01/19/19 04:01 97.6 F 107 H 25 H 94/63 98 01/19/19 03:00 105 H 22 93/53 97 01/19/19 02:00 95 15 85/57 99 01/19/19 01:00 109 H 20 71/61 100 01/19/19 00:09 93 15 71/61 100 01/19/19 00:00 97.8 F 103 H 22 72/45 100 01/18/19 23:00 92 15 82/47 93 L 01/18/19 22:00 100 23 83/68 99 01/18/19 21:00 107 H 25 H 99/67 98 01/18/19 20:00 97.3 F L 112 H 25 H 91/59 99 01/18/19 19:50 113 H 01/18/19 19:40 95 01/18/19 19:39 95 01/18/19 19:28 101 H 01/18/19 19:00 98 23 106/88 97 01/18/19 18:00 96 17 74/51 98 01/18/19 17:00 86 21 81/50 99 01/18/19 16:16 100 01/18/19 16:04 102 H 01/18/19 16:00 104 H 21 101/78 100 01/18/19 15:00 100 33 H 104/65 100 01/18/19 14:30 104 H 91/62 99 01/18/19 14:00 97 24 86/57 99 01/18/19 13:30 90 23 87/62 97 01/18/19 13:00 93 23 87/62 98 01/18/19 12:30 93 14 82/63 99 01/18/19 12:00 97.7 F 95 24 89/60 98 01/18/19 11:52 107 H 01/18/19 11:39 108 H 01/18/19 11:30 113 H 18 86/65 98 01/18/19 11:00 118 H 29 H 85/64 96 01/18/19 10:30 112 H 27 H 84/56 98 01/18/19 10:00 111 H 22 99/69 98 01/18/19 09:30 112 H 21 99/69 98 01/18/19 09:00 107 H 21 99/69 98 01/18/19 08:30 129 H 35 H 96/67 99 01/18/19 08:15 111 H 01/18/19 08:04 107 H 01/18/19 08:00 98.1 F 111 H 24 102/69 100 01/18/19 07:30 101 H 18 103/91 99 Intake and Output 01/18/19 01/19/19 01/19/19 22:59 06:59 14:59 Intake Total 370 240 Output Total 130 145 Balance 240 95 Intake: IV 120 140 .9 KVO 40 140 Sodium Chloride 0.9% 1, 80 000 ml @ 75 mls/hr IV . [id number] [facility] Rx#:[id number] Intake, IV Titration 250 Amount Sodium Chloride 0.9% 500 250 ml 500 ml @ 999 mls/hr IV .Q31M ONE Rx#:[id number] Oral 100 Output: Urine 130 145 Other: Voiding Method Indwelling Catheter Indwelling Catheter Weight 48.7 kg No acute distress currently on BiPAP S1-S2 heard decreased breath sounds No edema Results - Lab Results Most recent lab results ABG pH 7.25 (7.35-7.45) L 01/17/19 14:19 ABG pCO2 39 mmHg (35-45) 01/17/19 14:19 ABG pO2 >400 mmHg (83-108) H 01/17/19 14:19 ABG HCO3 17 mmol/L (21-25) L 01/17/19 14:19 ABG O2 Saturation 99.4 % (94-97) H 01/17/19 14:19 Calcium 5.5 mg/dL (8.4-10.2) L* 01/19/19 04:24 Phosphorus 7.4 mg/dL (2.5-4.5) H 01/19/19 04:24 Magnesium 2.1 mg/dL (1.6-2.3) 01/19/19 04:24 01/19/19 04:24 01/19/19 04:24 Assessment and Plan Assessment: #1 oliguric acute kidney injury secondary to toxic and ischemic ATN. Toxic from ho-chunk based chemotherapy and recent contrast use, ischemic from low blood pressures. #2 severe metabolic acidosis secondary to acute kidney injury #3 hypocalcemia, suspect secondary to hyperphosphatemia from acute kidney injury. #4 shock with multiorgan dysfunction, rule out sepsis #5 acute respiratory failure requiring BiPAP #6 metastatic small cell lung cancer with one dose of carboplatinum-based chemotherapy. Plan: #1 maintain systolic blood pressure more than 120/map more than 65. Consider vasopressors to maintain hemodynamics. #2 bladder scan to rule out urinary retention #3 add bicarb drip. Anticipate calcium to go low with bicarb drip. #4 give 1 more dose of calcium gluconate. #5 add phosphate binders #6 agree with stopping all antihypertensives and diuretics. #7 monitor renal functions closely. No acute indication for renal replacement therapy at this time. With multiple comorbid conditions, consider hospice if agreeable by oncology. Given very much for this consultation we will follow along while she is in the hospital.
[2019-01-19] MEDS ORDERED: DEXTROSE 5% IN WATER 1,000 ML with SODIUM BICARB (1 MEQ/ML) 150 ML IV SCH (08:00)
[2019-01-19] MEDS ORDERED: CALCIUM GLUCONATE 2 GM in SODIUM CHLORIDE 0.9% 100 ML IVPB ONE (08:00)
[2019-01-19] MEDS: INSULIN ASPART (NovoLOG) 100 UNIT/ML VIAL SQ SCH (08:19)
[2019-01-19] MEDS: PANTOPRAZOLE 40 MG/10 ML VIAL IVP SCH (08:33)
[2019-01-19] MEDS: AMOXIC-POT CLAV 875-125MG 1 EACH TAB PO SCH (08:53)
[2019-01-19] MEDS: HEPARIN SODIUM,PORCINE 5,000 UNIT/ML 1 ML VIAL SQ SCH (08:53)
[2019-01-19] MEDS: NICOTINE 14MG/24HR PATCH TRANSDERM SCH (09:02)
--- NOTE | 2019-01-19 10:31 | P.PN ---
Subjective Progress Note Date: 01/18/19 Principal diagnosis: Acute respiratory failure Acute exacerbation COPD Acute exacerbation CHF 78-year-old female patient with history of metastatic small cell lung carcinoma with chest wall and liver metastases presented to ER with worsening shortness of breath and chest pain; in the ED patient was found to be in acute hypoxic respiratory failure and was placed on BiPAP; patient lab work also showed elevated troponin indeterminate at 0.77 and elevated lactic acid levels with possible sepsis possibly secondary to UTI; patient is admitted to ICU with acute respiratory failure for further evaluation by pulmonary and oncology service Objective - Vital Signs Vital signs: Vital Signs Temp 97.7 F 01/18/19 12:00 Pulse 86 01/18/19 17:00 Resp 21 01/18/19 17:00 BP 81/50 01/18/19 17:00 Pulse Ox 99 01/18/19 17:00 Intake & Output 01/17/19 01/18/19 01/18/19 18:59 06:59 18:59 Intake Total 75 3025 550 Output Total 35 615 210 Balance 40 2410 340 Weight 40.778 kg 47.3 kg Intake: IV 2950 550 Cefepime 2 gm In Sodium 200 Chloride 0.9% 100 ml @ 200 mls/hr IVPB Q8H [facility] Rx#:[id number] Sodium Chloride 0.9% 1, 2750 550 000 ml @ 75 mls/hr IV . [id number] [facility] Rx#:[id number] Intake, IV Titration 75 75 Amount Sodium Chloride 0.9% 1, 75 75 000 ml @ 75 mls/hr IV . [id number] [facility] Rx#:[id number] Output: Urine 35 615 210 Uretheral ([place]) 20 Other: Voiding Method Indwelling Catheter Indwelling Catheter - Exam GENERAL EXAM: Alert; in apparent distress; remains on BiPAP. HEAD: Normocephalic/atraumatic. EYES: Normal reaction of pupils, equal size. Conjunctiva pink, sclera white. NOSE: Clear with pink turbinates. THROAT: No erythema or exudates. NECK: No masses, no JVD, no thyroid enlargement, no adenopathy. CHEST: No chest wall deformity. Symmetrical expansion. LUNGS: Equal air entry with scattered wheezes CVS: Regular rate and rhythm, normal S1 and S2, no gallops, no murmurs, no rubs ABDOMEN: Soft, nontender. No hepatosplenomegaly, normal bowel sounds, no guarding or rigidity. EXTREMITIES: No clubbing, no edema, no cyanosis, 2+ pulses and upper and lower extremities. MUSCULOSKELETAL: Muscle strength and tone normal. - Labs CBC & Chem 7: 01/19/19 04:24 01/19/19 04:24 Labs: Abnormal Lab Results - Last 24 Hours (Table) 01/17/19 01/17/19 01/17/19 Range/Units 16:48 17:49 21:26 RBC (3.80-5.40) m/uL Hgb (11.4-16.0) gm/dL Hct (34.0-46.0) % MCHC (31.0-37.0) g/dL Neutrophils # (1.3-7.7) k/uL Lymphocytes # (1.0-4.8) k/uL Potassium (3.5-5.1) mmol/L Chloride (98-107) mmol/L Carbon Dioxide (22-30) mmol/L BUN (7-17) mg/dL Creatinine (0.52-1.04) mg/dL POC Glucose (mg/dL) 157 H (75-99) mg/dL Plasma Lactic Acid Scott 7.2 H* 4.9 H* (0.7-2.0) mmol/L Uric Acid (3.7-7.4) mg/dL Calcium (8.4-10.2) mg/dL Ionized Calcium [place] (4.5-5.3) mg/dL Lactate Dehydrogenase (313-618) U/L Troponin I (0.000-0.034) ng/mL 01/17/19 01/18/19 01/18/19 Range/Units 22:01 04:25 04:25 RBC 3.71 L (3.80-5.40) m/uL Hgb 9.5 L (11.4-16.0) gm/dL Hct 32.8 L (34.0-46.0) % MCHC 29.0 L (31.0-37.0) g/dL Neutrophils # 8.9 H (1.3-7.7) k/uL Lymphocytes # 0.2 L (1.0-4.8) k/uL Potassium (3.5-5.1) mmol/L Chloride 120 H (98-107) mmol/L Carbon Dioxide 15 L (22-30) mmol/L BUN 33 H (7-17) mg/dL Creatinine 1.17 H (0.52-1.04) mg/dL POC Glucose (mg/dL) 122 H (75-99) mg/dL Plasma Lactic Acid Scott (0.7-2.0) mmol/L Uric Acid (3.7-7.4) mg/dL Calcium 4.8 L* (8.4-10.2) mg/dL Ionized Calcium [place] (4.5-5.3) mg/dL Lactate Dehydrogenase (313-618) U/L Troponin I (0.000-0.034) ng/mL 01/18/19 01/18/19 01/18/19 Range/Units 09:18 11:36 14:50 RBC (3.80-5.40) m/uL Hgb (11.4-16.0) gm/dL Hct (34.0-46.0) % MCHC (31.0-37.0) g/dL Neutrophils # (1.3-7.7) k/uL Lymphocytes # (1.0-4.8) k/uL Potassium 5.4 H (3.5-5.1) mmol/L Chloride (98-107) mmol/L Carbon Dioxide (22-30) mmol/L BUN (7-17) mg/dL Creatinine (0.52-1.04) mg/dL POC Glucose (mg/dL) 101 H 131 H (75-99) mg/dL Plasma Lactic Acid Scott (0.7-2.0) mmol/L Uric Acid 13.5 H (3.7-7.4) mg/dL Calcium (8.4-10.2) mg/dL Ionized Calcium [place] 3.6 L (4.5-5.3) mg/dL Lactate Dehydrogenase >23945 H (313-618) U/L Troponin I (0.000-0.034) ng/mL 01/18/19 01/18/19 Range/Units 14:50 16:36 RBC (3.80-5.40) m/uL Hgb (11.4-16.0) gm/dL Hct (34.0-46.0) % MCHC (31.0-37.0) g/dL Neutrophils # (1.3-7.7) k/uL Lymphocytes # (1.0-4.8) k/uL Potassium (3.5-5.1) mmol/L Chloride (98-107) mmol/L Carbon Dioxide (22-30) mmol/L BUN (7-17) mg/dL Creatinine (0.52-1.04) mg/dL POC Glucose (mg/dL) 107 H (75-99) mg/dL Plasma Lactic Acid Scott (0.7-2.0) mmol/L Uric Acid (3.7-7.4) mg/dL Calcium (8.4-10.2) mg/dL Ionized Calcium [place] (4.5-5.3) mg/dL Lactate Dehydrogenase (313-618) U/L Troponin I 74.300 H* (0.000-0.034) ng/mL Microbiology - Last 24 Hours (Table) 01/17/19 13:29 Blood Culture - Preliminary Blood No Growth after 24 hours 01/17/19 14:24 Urine Culture - Preliminary Urine,Catheterized Assessment and Plan Assessment: 1. Acute hypoxic respiratory failure; continue with BiPAP; pulmonary service following 2. Acute exacerbation systolic CHF/ elevated troponin; possible non-ST elevation CT - Cardiology is following and recommending conservative approach in view of acute respiratory failure; patient is started on small dose of beta blockers, Lopressor 12.5 mg by mouth 3 times a day and is recommended cautious diuresis with Lasix 20 mg every 8 hours - Patient does have CAD with 70% stenosis of left main and occlusion of right coronary artery with severe mitral regurgitation - Further recommendations pending clinical course 3. Acute exacerbation COPD; continue with DuoNeb nebulizer treatments with Pulmicort inhalation twice a day along with Perforomist 20 MCG twice a day - Continue with medical prophylaxis with Augmentin 875 mg every 12 hours in COPD exacerbation - Solu-Medrol 40 mg IV every 6 hours 4. Sirs; based on hypotension, tachycardia, lactic acidosis; continue to monit or; no clear indication of sepsis 5. Hypocalcemia; supplemented; continue to monitor calcium levels and supplement as needed 6. Metastatic small cell lung carcinoma with metastases to liver and bone - Patient was initiated on chemotherapy on 01/15/2019 which is currently on hold until medical improvement - Oncology service is on board and recommending to monitor calcium levels along with LDH and uric acid to monitor for tumor lysis syndrome - Oncology inclined towards palliative care; the discussion with patient and family 7. Acute renal failure/ severe metabolic acidosis - Nephrology is following and recommending to maintain systolic blood pressure greater than 120 with possible is also pressor support to maintain hemodynamics; bicarb infusion; calcium gluconate supplement for anticipated hypocalcemia with bicarb infusion; all antihypertensive and diuretics have been put on hold; continue to monitor renal function and electrolytes closely - Dialysis not recommended by nephrology at this time 8. DVT prophylaxis; subcu subcu heparin CODE STATUS; DO NOT RESUSCITATE Time with Patient: Greater than 30
[2019-01-19] MEDS: MORPHINE SULFATE 2 MG/ML SYRINGE IV PRN (11:13)
[2019-01-19] MEDS ORDERED: MORPHINE SULFATE 4 MG/ML SYRINGE IVP ONE (11:17)
[2019-01-19] MEDS ORDERED: MORPHINE SULFATE (100 MG/2 ML) 100 MG in SODIUM CHLORIDE 0.9% 100 ML IV SCH (12:00)
--- NOTE | 2019-01-19 12:14 | PN ---
PROGRESS NOTE DATE OF SERVICE: January 19, 2019 This is a 78-year-old female with a history of shortness of breath, likely related to underlying congestive heart failure. On December 19, she had a liver biopsy which was positive for neuroendocrine cancer, consistent with lung primary/small-cell lung cancer. She has history of ongoing tobacco use with nicotine addition, chronic obstructive pulmonary disease with chronic obstructive pulmonary disease exacerbation. No evidence of pulmonary embolism on CT angiogram, CAD, heart failure, hyperlipidemia, hypertension, myocardial infarction, DJD, rheumatoid arthritis, peripheral vascular occlusive disease, post-polio syndrome, and valvular heart disease. Anyway, the patient is currently on BiPAP at 12 and 6 and 35%. She was complaining about that. We tried AIRVO. When we did, she desaturated and her heart rate went up quite high. We placed her back on BiPAP. She is not receiving any IV fluids save for D5W with 3 amps of bicarb at 75 mL an hour. She has been fluid resuscitated with 1.5 L of fluid. Currently, she is doing about the same as she was yesterday. She does not like the BiPAP mask at all. She would not want to be intubated and mechanically ventilated. PHYSICAL EXAMINATION: VITAL SIGNS: Current vital signs include a temperature of 97.6, heart rate of 97, respiratory rate 28, blood pressure 116/72. Mean 86 and saturations are 99% on the BiPAP. GENERAL: Appears in mild to moderate distress. She is a bit tachypneic. HEENT examination is grossly unremarkable. She is wearing a BiPAP mask. NECK: Supple. Full range of motion. No adenopathy or thyromegaly. Neck veins are flat. CARDIOVASCULAR examination reveals tachycardia. S1, S2 normal. No murmur noted. Heart sounds are distant. LUNGS: Reveals diffuse rhonchi and crackles. Breath sounds are diminished. There is prolongation. ABDOMEN: Soft. Bowel sounds are heard. EXTREMITIES are intact. No cyanosis, clubbing, or edema. SKIN without rash. NEUROLOGIC examination is brief but nonfocal. Microbiologic studies are so far negative. White count 28.3, hemoglobin 9.8, hematocrit 33.5, platelet count 123,000. Sodium 142, potassium 4.6, chloride 117, carbon dioxide only 11 and anion gap is 14. BUN and creatinine were 61 and 2.36. Calcium 5.5, ionized calcium 3.4. AST 6235, ALT 3443. Albumin 2.6. A chest x-ray done this morning at 6 o'clock shows evidence of underlying COPD, as well as cardiomegaly. In addition, there is improved aeration particularly in the right lung. Medications are reviewed. ASSESSMENT: 1. Shortness of breath, mostly related to underlying congestive heart failure, improved. 2. Recent diagnosis on December 19 by liver biopsy of neuroendocrine cancer, consistent with lung primary/small cell lung cancer. 3. History of ongoing tobacco use with nicotine addiction. 4. Chronic obstructive pulmonary disease exacerbation. 5. No evidence of pulmonary embolism by CT angiogram. 6. History of coronary artery disease. 7. History of congestive heart failure. 8. Hyperlipidemia. 9. Hypertension. 10.History of myocardial infarction. 11.Degenerative joint disease. 12.History of rheumatoid arthritis. 13.Peripheral vascular occlusive disease. 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 15.Valvular heart disease. PLAN: The patient is doing okay. We tried to change from BiPAP to AIRVO for high-flow O2. She cannot tolerate it. She is getting some D5W with 3 amps of bicarb at 75 mL an hour. She is a NO CODE. She is not wanting sedation or mechanical ventilation. I believe that is the correct decision by her. We will continue to treat her aggressively. No additional recommendations are made. Prognosis is very guarded. MMPEDROL / IJN: [id number] /
[2019-01-19] MEDS ORDERED: CALCIUM ACETATE 667 MG TAB PO SCH (12:30)
--- NOTE | 2019-01-19 14:07 | P.PN ---
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 presented to ER with worsening shortness of breath and chest pain; in the ED patient was found to be in acute hypoxic respiratory failure and was placed on BiPAP; patient lab work also showed elevated troponin indeterminate at 0.77 and elevated lactic acid levels with possible sepsis possibly secondary to UTI; patient is admitted to ICU with acute respiratory failure for further evaluation by pulmonary and oncology service 01/19/2019 Patient is seen and evaluated in ICU room 252 at bedside; patient remains on BiPAP and does open eyes to verbal and tactile stimulation Vital signs remained stable with a temperature of 97.6, pulse 97, respiration 28 and blood pressure 116/72; SpO2 of 99% on BiPAP Laboratory is significant for a white blood count of 28.3, hemoglobin of 9.8 and platelet count of 1 23,000; sodium of 142, potassium 4.6, BUN and creatinine are 61 and 2.36; calcium level of 5.5 with ionized calcium of 3.4; AST/ALT are 6 235/3443 Patient remains on IV fluids D5 water with 3 A of bicarb at 75 mL an hour; patient has had fluid resuscitation with 1.5 L; lung auscultation shows diffuse crackles and rhonchi Patient remains on same management under paster supervisor service and ICU; prognosis is guarded Marked transaminitis possibly passive congestion due to acute CHF; we will monitor liver enzymes closely; we will obtain hepatic ultrasound if levels continue to trend up Objective - Vital Signs Vital signs: Vital Signs Temp 97.6 F 01/19/19 04:01 Pulse 123 H 01/19/19 10:00 Resp 31 H 01/19/19 10:00 BP 116/72 01/19/19 10:00 Pulse Ox 99 01/19/19 10:00 Intake & Output 01/18/19 01/19/19 01/19/19 18:59 06:59 18:59 Intake Total 570 530 235 Output Total 220 230 20 Balance 350 300 215 Weight 48.7 kg Intake: IV 570 180 135 .9 KVO 180 60 Dextrose 5% in Water 1, 75 000 ml @ 75 mls/hr IV . [id number] CARLOS with Sodium Bicarb (1 Meq/ml) 150 ml Rx#:[id number] Sodium Chloride 0.9% 1, 570 000 ml @ 75 mls/hr IV . [id number] [facility] Rx#:[id number] Intake, IV Titration 250 100 Amount Calcium Gluconate 2 gm In 100 Sodium Chloride 0.9% 100 ml @ 100 mls/hr IVPB ONCE ONE Rx#:[id number] Sodium Chloride 0.9% 500 250 ml 500 ml @ 999 mls/hr IV .Q31M ONE Rx#:[id number] Oral 100 Output: Urine 220 230 20 Other: Voiding Method Indwelling Catheter Indwelling Catheter - Exam GENERAL EXAM: Alert; in apparent distress; remains on BiPAP. HEAD: Normocephalic/atraumatic. EYES: Normal reaction of pupils, equal size. Conjunctiva pink, sclera white. NOSE: Clear with pink turbinates. THROAT: No erythema or exudates. NECK: No masses, no JVD, no thyroid enlargement, no adenopathy. CHEST: No chest wall deformity. Symmetrical expansion. LUNGS: Equal air entry with scattered wheezes CVS: Regular rate and rhythm, normal S1 and S2, no gallops, no murmurs, no rubs ABDOMEN: Soft, nontender. No hepatosplenomegaly, normal bowel sounds, no guarding or rigidity. EXTREMITIES: No clubbing, no edema, no cyanosis, 2+ pulses and upper and lower extremities. MUSCULOSKELETAL: Muscle strength and tone normal. - Labs CBC & Chem 7: 01/19/19 04:24 01/19/19 04:24 Labs: Abnormal Lab Results - Last 24 Hours (Table) 01/18/19 01/18/19 01/18/19 Range/Units 11:36 14:50 14:50 WBC (3.8-10.6) k/uL RBC (3.80-5.40) m/uL Hgb (11.4-16.0) gm/dL Hct (34.0-46.0) % MCHC (31.0-37.0) g/dL Plt Count (150-450) k/uL Neutrophils # (1.3-7.7) k/uL Lymphocytes # (1.0-4.8) k/uL Potassium 5.4 H (3.5-5.1) mmol/L Chloride (98-107) mmol/L Carbon Dioxide (22-30) mmol/L BUN (7-17) mg/dL Creatinine (0.52-1.04) mg/dL POC Glucose (mg/dL) 131 H (75-99) mg/dL Uric Acid 13.5 H (3.7-7.4) mg/dL Calcium (8.4-10.2) mg/dL Ionized Calcium [place] 3.6 L (4.5-5.3) mg/dL Phosphorus (2.5-4.5) mg/dL AST (14-36) U/L ALT (9-52) U/L Lactate Dehydrogenase >36105 H (313-618) U/L Troponin I 74.300 H* (0.000-0.034) ng/mL Total Protein (6.3-8.2) g/dL Albumin (3.5-5.0) g/dL 01/18/19 01/18/19 01/18/19 Range/Units 16:36 19:06 20:56 WBC (3.8-10.6) k/uL RBC (3.80-5.40) m/uL Hgb (11.4-16.0) gm/dL Hct (34.0-46.0) % MCHC (31.0-37.0) g/dL Plt Count (150-450) k/uL Neutrophils # (1.3-7.7) k/uL Lymphocytes # (1.0-4.8) k/uL Potassium (3.5-5.1) mmol/L Chloride (98-107) mmol/L Carbon Dioxide (22-30) mmol/L BUN (7-17) mg/dL Creatinine (0.52-1.04) mg/dL POC Glucose (mg/dL) 107 H 104 H 106 H (75-99) mg/dL Uric Acid (3.7-7.4) mg/dL Calcium (8.4-10.2) mg/dL Ionized Calcium [place] (4.5-5.3) mg/dL Phosphorus (2.5-4.5) mg/dL AST (14-36) U/L ALT (9-52) U/L Lactate Dehydrogenase (313-618) U/L Troponin I (0.000-0.034) ng/mL Total Protein (6.3-8.2) g/dL Albumin (3.5-5.0) g/dL 01/19/19 01/19/19 01/19/19 Range/Units 04:24 04:24 04:24 WBC 28.3 H (3.8-10.6) k/uL RBC 3.77 L (3.80-5.40) m/uL Hgb 9.8 L (11.4-16.0) gm/dL Hct 33.5 L (34.0-46.0) % MCHC 29.4 L (31.0-37.0) g/dL Plt Count 123 L (150-450) k/uL Neutrophils # 28.0 H (1.3-7.7) k/uL Lymphocytes # 0.1 L (1.0-4.8) k/uL Potassium (3.5-5.1) mmol/L Chloride 117 H (98-107) mmol/L Carbon Dioxide 11 L (22-30) mmol/L BUN 61 H (7-17) mg/dL Creatinine 2.36 H (0.52-1.04) mg/dL POC Glucose (mg/dL) (75-99) mg/dL Uric Acid (3.7-7.4) mg/dL Calcium 5.5 L* (8.4-10.2) mg/dL Ionized Calcium [place] 3.4 L* (4.5-5.3) mg/dL Phosphorus 7.4 H (2.5-4.5) mg/dL AST 6235 H (14-36) U/L ALT 3443 H (9-52) U/L Lactate Dehydrogenase (313-618) U/L Troponin I (0.000-0.034) ng/mL Total Protein 5.2 L (6.3-8.2) g/dL Albumin 2.6 L (3.5-5.0) g/dL 01/19/19 Range/Units 06:48 WBC (3.8-10.6) k/uL RBC (3.80-5.40) m/uL Hgb (11.4-16.0) gm/dL Hct (34.0-46.0) % MCHC (31.0-37.0) g/dL Plt Count (150-450) k/uL Neutrophils # (1.3-7.7) k/uL Lymphocytes # (1.0-4.8) k/uL Potassium (3.5-5.1) mmol/L Chloride (98-107) mmol/L Carbon Dioxide (22-30) mmol/L BUN (7-17) mg/dL Creatinine (0.52-1.04) mg/dL POC Glucose (mg/dL) 109 H (75-99) mg/dL Uric Acid (3.7-7.4) mg/dL Calcium (8.4-10.2) mg/dL Ionized Calcium Madison (4.5-5.3) mg/dL Phosphorus (2.5-4.5) mg/dL AST (14-36) U/L ALT (9-52) U/L Lactate Dehydrogenase (313-618) U/L Troponin I (0.000-0.034) ng/mL Total Protein (6.3-8.2) g/dL Albumin (3.5-5.0) g/dL Microbiology - Last 24 Hours (Table) 01/17/19 14:24 Urine Culture - Final Urine,Catheterized 01/17/19 13:29 Blood Culture - Preliminary Blood No Growth after 24 hours Assessment and Plan Assessment: 1. Acute hypoxic respiratory failure; continue with BiPAP; pulmonary service following 2. Acute exacerbation systolic CHF/ elevated troponin; possible non-ST elevation SC - Cardiology is following and recommending conservative approach in view of acute respiratory failure; patient is started on small dose of beta blockers, Lopressor 12.5 mg by mouth 3 times a day and is recommended cautious diuresis with Lasix 20 mg every 8 hours - Patient does have CAD with 70% stenosis of left main and occlusion of right coronary artery with severe mitral regurgitation - Further recommendations pending clinical course 3. Acute exacerbation COPD; continue with DuoNeb nebulizer treatments with Pulmicort inhalation twice a day along with Perforomist 20 MCG twice a day - Continue with medical prophylaxis with Augmentin 875 mg every 12 hours in COPD exacerbation - Solu-Medrol 40 mg IV every 6 hours 4. Sirs; based on hypotension, tachycardia, lactic acidosis; continue to monitor; no clear indication of sepsis 5. Hypocalcemia; supplemented; continue to monitor calcium levels and horvath pplement as needed 6. Metastatic small cell lung carcinoma with metastases to liver and bone - Patient was initiated on chemotherapy on 01/15/2019 which is currently on hold until medical improvement - Oncology service is on board and recommending to monitor calcium levels along with LDH and uric acid to monitor for tumor lysis syndrome - Oncology inclined towards palliative care; the discussion with patient and family 7. Acute renal failure/ severe metabolic acidosis - Nephrology is following and recommending to maintain systolic blood pressure greater than 120 with possible is also pressor support to maintain hemodynamics; bicarb infusion; calcium gluconate supplement for anticipated hypocalcemia with bicarb infusion; all antihypertensive and diuretics have been put on hold; continue to monitor renal function and electrolytes closely - Dialysis not recommended by nephrology at this time 8. DVT prophylaxis; subcu subcu heparin CODE STATUS; DO NOT RESUSCITATE Time with Patient: Greater than 30
[2019-01-19 15:24] VITALS: RESP 17
[2019-01-19 18:28] VITALS: BP 61/42; PULSE 105
[2019-01-19] MEDS ORDERED: RASBURICASE 6 MG in SODIUM CHLORIDE 0.9% 46 ML IV ONE (19:19)
--- NOTE | 2019-01-20 21:11 | P.PN ---
Subjective Progress Note Date: 01/19/19 Principal diagnosis: Extensive stage SCLC BUDDY Acute hepatic failure Respiratory failure Pt's condition deteriorating. Per family, on morphine drip and comfort care plans now. Objective - Vital Signs Vital signs: Vital Signs Temp 97.6 F 01/19/19 04:01 Pulse 105 H 01/19/19 18:00 Resp 17 01/19/19 15:00 BP 61/42 01/19/19 17:00 Pulse Ox 97 01/19/19 15:00 - Exam General: In no acute distress. Has Bipap on and sleeping. HEENT: Mucosa moist. Neck: Neck supple. Lungs: Breathing comfortably with BiPAP, although sleeping. Heart: Regular rate. Abdomen: Soft. MSK: No obvious deformities. Neuro: Minimally responsive. Skin: No rash. Psych: Minimally responsive. - Labs CBC & Chem 7: 01/19/19 04:24 01/19/19 04:24 Labs: Microbiology - Last 24 Hours (Table) 01/17/19 13:29 Blood Culture - Preliminary Blood No Growth after 72 hours Assessment and Plan Assessment: 1. Extensive stage SCLC 2. Hyperuricemia 3. Hyperphosphatemia 4. Hypocalcemia 5. BUDDY 6. Acute liver failure 7. Respiratory failure requiring BiPAP 8. Bicytopenia due to bone met's and chemotherapy 9. Reactive leukocytosis Plan: Ms. Igleisas is a very pleasant 78 yo female with recently diagnosed extensive stage SCLC, with large tumor burden, who is here from clinic for respiratory distress and hypotension/tachycardia after receiving C1D3 of etoposide. She received C1 of Carbo/etoposide/tacentriq and was hospitalized after her 3 day of etoposide for hypotension and tachycardia. Found to be hypocalcemic, hyperphosphatemic, and with BUDDY. Course complicated by respiratory failure requiring BiPAP and acute hepatic failure. Her uric acid level was high on presentation, and TLS could have contributed to her renal dysfunction, although hypotension and hypoperfusion likely did as well due to concurrent liver failure. Discussed pt's condition with family. Discussed concern for TLS. Family have already decided to pursue comfort care and pt recently started on morphine drip. She appears comfortable. This decision is very reasonable and will hold off on any further aggressive management for now. Family agreeable. All questions answered.
--- NOTE | 2019-02-04 09:40 | P.DS ---
Providers Date of admission: 01/17/19 16:06 Expected date of discharge: 01/19/19 Attending physician: Irineo Lizama Consults: 01/17/19 16:06 Consult Physician Routine Consulting Provider: Jb Aleman Consult Reason/Comments: copd, metastatic lung cancer, lactic acidosis Do you want consulting provider notified?: Already Contacted 01/17/19 18:23 Consult Physician Routine Consulting Provider: Adrian Dove Consult Reason/Comments: malignancy Do you want consulting provider notified?: Yes 01/18/19 18:31 Consult Physician Routine Consulting Provider: Fausto Tripp Consult Reason/Comments: increased CR Do you want consulting provider notified?: Yes Primary care physician: Stated None Hospital Course: Ms. Iglesias is a very pleasant 78 yo female with recently diagnosed extensive stage SCLC, with large tumor burden, who is here from clinic for respiratory distress and hypotension/tachycardia after receiving C1D3 of etoposide. She received C1 of Carbo/etoposide/tacentriq and was hospitalized after her 3 day of etoposide for hypotension and tachycardia. Found to be hypocalcemic, hyperphosphatemic, and with BUDDY. Course complicated by respiratory failure requi ring BiPAP and acute hepatic failure. Her uric acid level was high on presentation, and TLS could have contributed to her renal dysfunction, although hypotension and hypoperfusion likely did as well due to concurrent liver failure. Discussed pt's condition with family. Discussed concern for TLS. Family had already decided to pursue comfort care and pt was started on morphine drip. She appears comfortable;any further aggressive management was discontinued. please refer to my morning progress note for 01/19/19 for further details. patient on 01/19/19 evening. Patient Condition at Discharge: Serious Plan - Discharge Summary Discharge Rx Participant: Yes New Discharge Prescriptions: No Action Aspirin 81 mg PO BID Spironolactone [Aldactone] 12.5 mg PO DAILY Metoprolol Succinate [Toprol XL] 25 mg PO DAILY Atorvastatin [Lipitor] 80 mg PO HS HYDROcodone/APAP 7.5-325MG [[place] 7.5-325] 1 tab PO Q4H PRN 3 Days #18 tab PRN Reason: Severe Pain Multivitamins, Thera [Multivitamin (formulary)] 1 tab PO DAILY Discharge Medication List Aspirin 81 mg PO BID 12/13/14 [History] Atorvastatin [Lipitor] 80 mg PO HS 10/30/18 [History] Metoprolol Succinate [Toprol XL] 25 mg PO DAILY 10/30/18 [History] Spironolactone [Aldactone] 12.5 mg PO DAILY 10/30/18 [History] HYDROcodone/APAP 7.5-325MG [[place] 7.5-325] 1 tab PO Q4H PRN 3 Days #18 tab 12/17/18 [Rx] Multivitamins, Thera [Multivitamin (formulary)] 1 tab PO DAILY 01/17/19 [History] Follow up Appointment(s)/Referral(s): [facility], [NON-STAFF] - 1-2 Days (This can be used to reach Hospice also. ) None,Stated [Primary Care Provider] - 1-2 days Discharge Disposition: HOME WITH HOSPICE
--- NOTE | 2019-02-08 08:07 | CDI ---
Documentation Clarification Form Date: 03/01/19 From: GLORIA Ortega Phone: If you have question, contact Christiana Oh at [phone] M-F 8:30 am to 6pm Admit Date: 01/17/2019 4:06:00 PM Patient Name: Lena Iglesias Visit Number: [id number] Discharge Date: 01/19/2019 9:55:00 PM ATTENTION: The Clinical Documentation Specialists (CDI) and [facility] Coding Staff appreciate your assistance in clarifying documentation. Please respond to the clarification below the line at the bottom and electronically sign. The CDI & [facility] Coding staff will review the response and follow-up if needed. Please note: Queries are made part of the Legal Health Record. If you have any questions, please contact the author of this message via ITS. Dr. Zuniga, Ms Iglesias was admitted to the ICU with multiple complex issues. Septic workup was initiated but dx ruled out. Troponin on admission was indeterminate at 0.77. History indicates the patient has significant CAD with left main disease and as well as chronic total occlusion of the right coronary artery. CABG was initially advised but due to her diagnosis of cancer, only medical therapy was decided. Impression from cardiac consult from 01/18: clinical picture does raise the possibility of a small non-ST elevated NH. An additional troponin level was ordered, which then showed it to be 74.300. Last progress note states elevated troponin; possible non-ST elevation NH. Patient was made comfort care on 01/19 and unfortunately later that evening. Your Dischrg Summary does not address this cardiac condition. In order to capture the severity of condition and necessary documentation specificity, please clarify if the NSTEMI was ruled in or out: NSTEMI ruled in and was Present on admission NSTEMI ruled in and was not Present on admission NSTEMI ruled out, elevated troponin due to other medical condition Other (please specify) Unknown NSTEMI was ruled in and present on admission MTDD
== END 2019-01-19 21:55 | disposition home health service (06) | DRG 280 ==
LOC: EC 12:31 → 2SICU 16:06
PROVIDERS: ADMIT Internal Medicine; ATTEND Internal Medicine
PROC: 5A09457 Assistance with Respiratory Ventilation, 24-96 Consecutive Hours, Continuous Positive Airway Pressure (ICD-10-PCS; principal; 2019-01-17)
DX: I11.0 Hypertensive heart disease with heart failure (principal); J96.01 Acute respiratory failure with hypoxia; I21.4 Non-ST elevation (NSTEMI) myocardial infarction; E43 Unspecified severe protein-calorie malnutrition; K72.00 Acute and subacute hepatic failure without coma; N17.0 Acute kidney failure with tubular necrosis; E88.3 Tumor lysis syndrome; J44.1 Chronic obstructive pulmonary disease with (acute) exacerbation; E87.2 Acidosis; C78.7 Secondary malignant neoplasm of liver and intrahepatic bile duct; Z68.1 Body mass index [BMI] 19.9 or less, adult; M48.54XA Collapsed vertebra, not elsewhere classified, thoracic region, initial encounter for fracture; C34.12 Malignant neoplasm of upper lobe, left bronchus or lung; C79.51 Secondary malignant neoplasm of bone; R65.10 Systemic inflammatory response syndrome (SIRS) of non-infectious origin without acute organ dysfunction; R64 Cachexia; Z51.5 Encounter for palliative care; I50.23 Acute on chronic systolic (congestive) heart failure; Z95.5 Presence of coronary angioplasty implant and graft; Z66 Do not resuscitate; I34.0 Nonrheumatic mitral (valve) insufficiency; D63.0 Anemia in neoplastic disease; M06.9 Rheumatoid arthritis, unspecified; I95.9 Hypotension, unspecified; F17.200 Nicotine dependence, unspecified, uncomplicated; G14 Postpolio syndrome; E83.51 Hypocalcemia; E83.39 Other disorders of phosphorus metabolism; E78.5 Hyperlipidemia, unspecified; M19.90 Unspecified osteoarthritis, unspecified site; I25.82 Chronic total occlusion of coronary artery; E86.0 Dehydration; Z79.899 Other long term (current) drug therapy; Z79.82 Long term (current) use of aspirin; Z91.013 Allergy to seafood; Z88.8 Allergy status to other drugs, medicaments and biological substances; Z90.710 Acquired absence of both cervix and uterus; I25.2 Old myocardial infarction; Z82.49 Family history of ischemic heart disease and other diseases of the circulatory system
CPT/HCPCS: 36415; 71045; 71275; 80048; 80053; 81001; 82330; 82805; 83605; 83615; 83735; 83880; 84100; 84132; 84484; 84550; 85025; 85610; 85730; 87040; 87086; 93005; 94640; 94660; 96361; 96365; 96366; 96367; 96375; 96377; 96413; 96417; 99291

== ENCOUNTER 2019-01-19 22:02 | Inpatient (IN) | payer MEDICAID ==
[2019-01-19 22:14] VITALS: BMI 3019.1
[2019-01-19] MEDS ORDERED: ATROPINE OPHTH SOLN 1% 5ML BTL SUBLINGUAL PRN (22:15)
[2019-01-19] MEDS ORDERED: MORPHINE SULFATE 2 MG/ML SYRINGE IV PRN (22:15)
[2019-01-19] MEDS ORDERED: LORazepam 2 MG/ML INJ IV PRN (22:15)
[2019-01-19] MEDS ORDERED: ONDANSETRON 4 MG/2 ML VIAL IVP PRN (22:15)
[2019-01-19] MEDS ORDERED: SCOPOLAMINE 1.5MG/72HR PATCH TRANSDERM SCH (22:30)
[2019-01-19] MEDS ORDERED: MORPHINE SULFATE (100 MG/2 ML) 100 MG in SODIUM CHLORIDE 0.9% 100 ML IV SCH (23:00)
== END 2019-01-20 05:35 | disposition expired | DRG 951 ==
LOC: 2SICU 22:02
PROVIDERS: ADMIT Internal Medicine Critical Care Medicine; ATTEND Internal Medicine Critical Care Medicine
PROC: 5A09357 Assistance with Respiratory Ventilation, Less than 24 Consecutive Hours, Continuous Positive Airway Pressure (ICD-10-PCS; principal; 2019-01-19)
DX: Z51.5 Encounter for palliative care (principal); J96.01 Acute respiratory failure with hypoxia; E43 Unspecified severe protein-calorie malnutrition; C79.9 Secondary malignant neoplasm of unspecified site; C34.90 Malignant neoplasm of unspecified part of unspecified bronchus or lung; J44.1 Chronic obstructive pulmonary disease with (acute) exacerbation; Z68.1 Body mass index [BMI] 19.9 or less, adult; Z66 Do not resuscitate; I11.0 Hypertensive heart disease with heart failure; I50.9 Heart failure, unspecified; D63.0 Anemia in neoplastic disease; E78.5 Hyperlipidemia, unspecified; M06.9 Rheumatoid arthritis, unspecified; M19.90 Unspecified osteoarthritis, unspecified site; I25.10 Atherosclerotic heart disease of native coronary artery without angina pectoris; Z79.82 Long term (current) use of aspirin; Z79.899 Other long term (current) drug therapy; Z91.013 Allergy to seafood; Z95.5 Presence of coronary angioplasty implant and graft; Z82.49 Family history of ischemic heart disease and other diseases of the circulatory system; Z81.1 Family history of alcohol abuse and dependence
CPT/HCPCS: 94660